=== PATIENT | female | born 1960 | race African-American/Black ===

== ENCOUNTER 2017-10-23 12:58 | Emergency (ER) | payer OTHER ==
[2017-10-23] MEDS ORDERED: IBUPROFEN 600 MG TAB PO STA (13:26)
[2017-10-23] MEDS ORDERED: SODIUM CHLORIDE 0.9% 500 ML IV STA (13:26)
[2017-10-23] MEDS ORDERED: ACETAMINOPHEN TAB 500 MG TAB PO STA (13:26)
--- NOTE | 2017-10-23 13:29 | ED ---
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 Patient comes in today because she was having some palpitations when she was at her rehab facility. Patient states she also has some congestion and she felt a little warm earlier today. Patient denies any chest pain patient denies difficulty breathing or shortness of breath. Patient denies a cough. Patient denies any sore throat or ear pain. Patient states congestion is in the center of her face. Patient denies any abdominal pain patient denies nausea vomiting or diarrhea. Patient denies any dysuria hematuria urinary frequency. - Related Data Home Medications Medication Instructions Recorded Confirmed Aspirin 81 mg PO DAILY 10/23/17 10/23/17 Atorvastatin Calcium [Lipitor] 40 mg PO HS 10/23/17 10/23/17 Cyclobenzaprine [Flexeril] 5 mg PO BID 10/23/17 10/23/17 Metoprolol Succinate (ER) [Toprol 50 mg PO DAILY 10/23/17 10/23/17 Xl] Mirtazapine [Remeron] 30 mg PO HS 10/23/17 10/23/17 diphenhydrAMINE HCL [Benadryl] 25 mg PO BID 10/23/17 10/23/17 Allergies Allergy/AdvReac Type Severity Reaction Status Date / Time Penicillins Allergy Rash/Hives Verified 10/23/17 13:17 Sulfa (Sulfonamide Allergy Rash/Hives Verified 10/23/17 13:17 Antibiotics) Review of Systems ROS Statement: Those systems with pertinent positive or pertinent negative responses have been documented in the HPI. ROS Other: All systems not noted in ROS Statement are negative. Past Medical History Past Medical History: Hypertension History of Any Multi-Drug Resistant Organisms: None Reported Past Surgical History: Hysterectomy Additional Past Surgical History / Comment(s): splenectomy Past Anesthesia/Blood Transfusion Reactions: No Reported Reaction Past Psychological History: Anxiety, Bipolar Smoking Status: Current every day smoker Past Alcohol Use History: None Reported Additional Past Alcohol Use History / Comment(s): pt states she smoke a half a pack a day. pt states she had prescription drug use in the past but has gone to rehab for it. Past Drug Use History: Prescription Drug Abuse General Exam - General Exam Comments Initial Comments: GENERAL: Patient is well-developed and well-nourished. Patient is nontoxic and well- hydrated and is in mild distress. ENT: Neck is soft and supple. No significant lymphadenopathy is noted. Oropharynx is clear. Moist mucous membranes. Neck has full range of motion without eliciting any pain. EYES: The sclera were anicteric and conjunctiva were pink and moist. Extraocular movements were intact and pupils were equal round and reactive to light. Eyelids were unremarkable. PULMONARY: Unlabored respirations. Good breath sounds bilaterally. No audible rales rhonchi or wheezing was noted. CARDIOVASCULAR: There is a regular rate and rhythm without any murmurs gallops or rubs. Patient is tachycardic at about 105 beats a minute ABDOMEN: Soft and nontender with normal bowel sounds. No palpable organomegaly was noted. There is no palpable pulsatile mass. SKIN: Skin is clear with no lesions or rashes and otherwise unremarkable. NEUROLOGIC: Patient is alert and oriented x3. Cranial nerves II through XII are grossly intact. Motor and sensory are also intact. Normal speech, volume and content. Symmetrical smile. MUSCULOSKELETAL: Normal extremities with adequate strength and full range of motion. No lower extremity swelling or edema. No calf tenderness. LYMPHATICS: No significant lymphadenopathy is noted PSYCHIATRIC: Normal psychiatric evaluation. Course Vital Signs 10/23/17 10/23/17 13:28 14:09 Temperature 98.5 F Pulse Rate 98 92 Respiratory 18 16 Rate Blood Pressure 137/89 139/75 O2 Sat by Pulse 98 97 Oximetry Medical Decision Making - Medical Decision Making EKG shows sinus tachycardia at 105 bpm WV interval 166 QRS is 82 QT interval 340 QTC is 449. Patient's EKG shows no ST segment elevation or depression or T wave abnormalities are noted. Chest x-ray shows no acute abnormality. Rectal the patient she had a white count and that if any symptoms worsened or if she had any new symptoms she was to come back to the emergency department. - Lab Data Result diagrams: 10/23/17 13:38 10/23/17 13:38 Lab Results 10/23/17 10/23/17 10/23/17 Range/Units 13:38 13:38 13:38 WBC 18.0 H (3.8-10.6) k/uL RBC 4.54 (3.80-5.40) m/uL Hgb 13.7 (11.4-16.0) gm/dL Hct 43.5 (34.0-46.0) % MCV 95.9 (80.0-100.0) fL MCH 30.1 (25.0-35.0) pg MCHC 31.4 (31.0-37.0) g/dL RDW 13.1 (11.5-15.5) % Plt Count 449 (150-450) k/uL Neutrophils % 85 % Lymphocytes % 10 % Monocytes % 3 % Eosinophils % 2 % Basophils % 0 % Neutrophils # 15.3 H (1.3-7.7) k/uL Lymphocytes # 1.8 (1.0-4.8) k/uL Monocytes # 0.5 (0-1.0) k/uL Eosinophils # 0.3 (0-0.7) k/uL Basophils # 0.1 (0-0.2) k/uL PT (9.0-12.0) sec INR (<1.2) APTT (22.0-30.0) sec Sodium 142 (137-145) mmol/L Potassium 3.8 (3.5-5.1) mmol/L Chloride 103 (98-107) mmol/L Carbon Dioxide 29 (22-30) mmol/L Anion Gap 10 mmol/L BUN 16 (7-17) mg/dL Creatinine 0.76 (0.52-1.04) mg/dL Est GFR (MDRD) Af Amer >60 (>60 ml/min/1.73 sqM) Est GFR (MDRD) Non-Af >60 (>60 ml/min/1.73 sqM) Glucose 130 H (74-99) mg/dL Calcium 10.0 (8.4-10.2) mg/dL Magnesium 1.9 (1.6-2.3) mg/dL Total Bilirubin 0.3 (0.2-1.3) mg/dL AST 16 (14-36) U/L ALT 24 (9-52) U/L Alkaline Phosphatase 70 (38-126) U/L Total Creatine Kinase 48 (30-135) U/L CK-MB (CK-2) 0.3 (0.0-2.4) ng/mL CK-MB (CK-2) Rel Index 0.6 Troponin I <0.012 (0.000-0.034) ng/mL Total Protein 6.6 (6.3-8.2) g/dL Albumin 3.7 (3.5-5.0) g/dL Urine Color Urine Appearance (Clear) Urine pH (5.0-8.0) Ur Specific [place] (1.001-1.035) Urine Protein (Negative) Urine Glucose (UA) (Negative) Urine Ketones (Negative) Urine Blood (Negative) Urine Nitrite (Negative) Urine Bilirubin (Negative) Urine Urobilinogen (<2.0) mg/dL Ur Leukocyte Esterase (Negative) 10/23/17 10/23/17 Range/Units 13:38 14:12 WBC (3.8-10.6) k/uL RBC (3.80-5.40) m/uL Hgb (11.4-16.0) gm/dL Hct (34.0-46.0) % MCV (80.0-100.0) fL MCH (25.0-35.0) pg MCHC (31.0-37.0) g/dL RDW (11.5-15.5) % Plt Count (150-450) k/uL Neutrophils % % Lymphocytes % % Monocytes % % Eosinophils % % Basophils % % Neutrophils # (1.3-7.7) k/uL Lymphocytes # (1.0-4.8) k/uL Monocytes # (0-1.0) k/uL Eosinophils # (0-0.7) k/uL Basophils # (0-0.2) k/uL PT 10.0 (9.0-12.0) sec INR 1.0 (<1.2) APTT 23.5 (22.0-30.0) sec Sodium (137-145) mmol/L Potassium (3.5-5.1) mmol/L Chloride (98-107) mmol/L Carbon Dioxide (22-30) mmol/L Anion Gap mmol/L BUN (7-17) mg/dL Creatinine (0.52-1.04) mg/dL Est GFR (MDRD) Af Amer (>60 ml/min/1.73 sqM) Est GFR (MDRD) Non-Af (>60 ml/min/1.73 sqM) Glucose (74-99) mg/dL Calcium (8.4-10.2) mg/dL Magnesium (1.6-2.3) mg/dL Total Bilirubin (0.2-1.3) mg/dL AST (14-36) U/L ALT (9-52) U/L Alkaline Phosphatase (38-126) U/L Total Creatine Kinase (30-135) U/L CK-MB (CK-2) (0.0-2.4) ng/mL CK-MB (CK-2) Rel Index Troponin I (0.000-0.034) ng/mL Total Protein (6.3-8.2) g/dL Albumin (3.5-5.0) g/dL Urine Color Yellow Urine Appearance Clear (Clear) Urine pH 6.5 (5.0-8.0) Ur Specific [place] 1.018 (1.001-1.035) Urine Protein Negative (Negative) Urine Glucose (UA) Negative (Negative) Urine Ketones Negative (Negative) Urine Blood Negative (Negative) Urine Nitrite Negative (Negative) Urine Bilirubin Negative (Negative) Urine Urobilinogen <2.0 (<2.0) mg/dL Ur Leukocyte Esterase Negative (Negative) Disposition Clinical Impression: Upper respiratory infection, Palpitations Disposition: HOME SELF-CARE Condition: Good Instructions: Upper Respiratory Infection (ED), Palpitations (ED) Referrals: Nonstaff,Physician [Primary Care Provider] - 1-2 days Time of Disposition: 15:01
[2017-10-23 13:32] VITALS: TEMP 98.5
[2017-10-23 13:48] LABS: Basophils # (A) 0.1 k/uL (0-0.2); Basophils % (A) 0 %; Eosinophils # (A) 0.3 k/uL (0-0.7); Eosinophils % (A) 2 %; HCT 43.5 % (34.0-46.0); HGB 13.7 gm/dL (11.4-16.0); Lymphocytes # (A) 1.8 k/uL (1.0-4.8); Lymphocytes % (A) 10 %; MCH 30.1 pg (25.0-35.0); MCHC 31.4 g/dL (31.0-37.0); MCV 95.9 fL (80.0-100.0); Mean Platelet Volume 7.2; Monocytes # (A) 0.5 k/uL (0-1.0); Monocytes % (A) 3 %; Neutrophils # (A) 15.3 k/uL (1.3-7.7); Neutrophils % (A) 85 %; Platelet Count 449 k/uL (150-450); RBC 4.54 m/uL (3.80-5.40); RDW 13.1 % (11.5-15.5)
[2017-10-23 13:56] LABS: ALT 24 U/L (9-52); AST 16 U/L (14-36); Albumin 3.7 g/dL (3.5-5.0); Alkaline Phosphatase 70 U/L (38-126); Anion Gap 10 mmol/L; Blood Urea Nitrogen 16 mg/dL (7-17); Carbon Dioxide 29 mmol/L (22-30); Chloride 103 mmol/L (98-107); Glucose 130 mg/dL (74-99); Magnesium 1.9 mg/dL (1.6-2.3); Potassium 3.8 mmol/L (3.5-5.1); Sodium 142 mmol/L (137-145); Total Bilirubin 0.3 mg/dL (0.2-1.3); Total Protein 6.6 g/dL (6.3-8.2)
--- NOTE | 2017-10-23 14:04 | XR ---
EXAMINATION TYPE: XR chest 2V DATE OF EXAM: 10/23/2017 COMPARISON: NONE HISTORY: Dysrhythmia TECHNIQUE: Frontal and lateral views of the chest are obtained. FINDINGS: There is no focal air space opacity, pleural effusion, or pneumothorax seen. The cardiac silhouette size is within normal limits. There are overlying cardiac leads. The osseous structures a re intact. IMPRESSION: No acute cardiopulmonary process.
[2017-10-23 14:09] LABS: Partial Thromboplastin Time 23.5 sec (22.0-30.0)
[2017-10-23 14:11] LABS: Creatine Kinase 48 U/L (30-135)
[2017-10-23 14:24] LABS: Creatine Kinase MB 0.3 ng/mL (0.0-2.4); Troponin I <0.012 ng/mL (0.000-0.034)
[2017-10-23 14:25] LABS: Appearance,Urine Clear (Clear); Bilirubin,Urine Negative (Negative); Blood,Urine Negative (Negative); Color,Urine Yellow; Glucose,Urine (UA) Negative (Negative); Ketones,Urine Negative (Negative); Leukocyte Esterase,Urine Negative (Negative); Nitrite,Urine Negative (Negative); PH, Urine 6.5 (5.0-8.0); Protein,Urine Negative (Negative); Specific Gravity,Urine 1.018 (1.001-1.035); Urobilinogen,Urine <2.0 mg/dL (<2.0)
[2017-10-23 15:44] VITALS: BP 136/68; PULSE 87; RESP 18
== END 2017-10-23 15:44 | disposition home or self-care (01) ==
LOC: EC 12:58
DX: J06.9 Acute upper respiratory infection, unspecified (principal); R00.2 Palpitations; R00.0 Tachycardia, unspecified; E78.5 Hyperlipidemia, unspecified; I10 Essential (primary) hypertension; F17.210 Nicotine dependence, cigarettes, uncomplicated; Z79.82 Long term (current) use of aspirin; Z79.899 Other long term (current) drug therapy; Z88.0 Allergy status to penicillin; Z88.2 Allergy status to sulfonamides
CPT/HCPCS: 36415; 71046; 80053; 81003; 82550; 82553; 83735; 84484; 85025; 85610; 85730; 93005; 99285

== ENCOUNTER 2017-12-25 19:05 | Observation (INO) | payer OTHER ==
--- NOTE | 2017-12-25 21:06 | XR ---
EXAMINATION: XR chest 2V DATE AND TIME: 12/25/2017 8:47 PM ORDERING PROVIDER: Forrest Laird CLINICAL INDICATION: COUGH headache and congestion TECHNIQUE: PA and lateral COMPARISON: To 218 DESCRIPTION: The lungs are clear. The pleural spaces are negative. The cardiac silhouette is not enlarged. The mediastinal and pleural silhouettes are unremarkable. The skeletal structures are intact without focal findings. The soft tissues are unremarkable. IMPRESSION: NO ACUTE PROCESS.
[2017-12-25] MEDS ORDERED: IBUPROFEN 600 MG TAB PO STA (21:08)
[2017-12-25] MEDS ORDERED: SODIUM CHLORIDE 0.9% 500 ML IV STA (21:08)
[2017-12-25] MEDS ORDERED: SODIUM CHLORIDE 0.9% 1,000 ML IV ONE (21:14)
[2017-12-25 22:03] LABS: Basophils % (A) 1 %; Eosinophils # (A) 0.5 k/uL (0-0.7); Eosinophils % (A) 7 %; HCT 43.7 % (34.0-46.0); HGB 13.8 gm/dL (11.4-16.0); Hypochromasia Slight; Lymphocytes # (A) 2.8 k/uL (1.0-4.8); Lymphocytes % (A) 41 %; MCH 30.4 pg (25.0-35.0); MCHC 31.6 g/dL (31.0-37.0); MCV 96.1 fL (80.0-100.0); Mean Platelet Volume 7.7; Monocytes # (A) 0.5 k/uL (0-1.0); Monocytes % (A) 7 %; Neutrophils # (A) 2.9 k/uL (1.3-7.7); Neutrophils % (A) 43 %; Platelet Count 401 k/uL (150-450); RBC 4.55 m/uL (3.80-5.40); RDW 13.1 % (11.5-15.5); WBC 6.8 k/uL (3.8-10.6)
[2017-12-25] MEDS: SODIUM CHLORIDE 0.9% 1,000 ML IV SCH (22:06)
[2017-12-25 22:08] LABS: Appearance,Urine Cloudy (Clear); Bacteria,Urine Rare /hpf; Bilirubin,Urine Negative (Negative); Blood,Urine Negative (Negative); Color,Urine Yellow; Glucose,Urine (UA) Negative (Negative); Hyaline Casts,Urine 3 /lpf (0-2); Ketones,Urine Negative (Negative); Leukocyte Esterase,Urine Small (Negative); Mucus,Urine Rare /hpf; Nitrite,Urine Negative (Negative); Protein,Urine Negative (Negative); RBC,Urine 6 /hpf (0-5); Specific Gravity,Urine 1.014 (1.001-1.035); Squamous Epithelial Cell,Urine 6 /hpf (0-4); Urobilinogen,Urine <2.0 mg/dL (<2.0); WBC,Urine 4 /hpf (0-5)
[2017-12-25 22:15] LABS: Anion Gap 11 mmol/L; Calcium 9.5 mg/dL (8.4-10.2); Carbon Dioxide 29 mmol/L (22-30); Chloride 103 mmol/L (98-107); Glucose 109 mg/dL (74-99); Sodium 143 mmol/L (137-145)
[2017-12-25 22:19] LABS: Blood Urea Nitrogen 9 mg/dL (7-17); Potassium 4.4 mmol/L (3.5-5.1)
--- NOTE | 2017-12-25 22:39 | ED ---
General Adult HPI - General Chief complaint: Upper Respiratory Infection Stated complaint: Headache/Sore Throat Time Seen by Provider: 12/25/17 20:50 Source: patient, family, RN notes reviewed Mode of arrival: ambulatory Limitations: no limitations - History of Present Illness Initial comments: Chief complaint history of present illness this is a 57-year-old female here for complaint of chills, sore throat and muscle aches and pains. No nausea vomiting or diarrhea. Otherwise she reports her appetite good. Patient denies fever - Related Data Home Medications Medication Instructions Recorded Confirmed Aspirin 81 mg PO DAILY 10/23/17 10/23/17 Atorvastatin Calcium [Lipitor] 40 mg PO HS 10/23/17 10/23/17 Cyclobenzaprine [Flexeril] 5 mg PO BID 10/23/17 10/23/17 Metoprolol Succinate (ER) [Toprol 50 mg PO DAILY 10/23/17 10/23/17 Xl] Mirtazapine [Remeron] 30 mg PO HS 10/23/17 10/23/17 diphenhydrAMINE HCL [Benadryl] 25 mg PO BID 10/23/17 10/23/17 Allergies Allergy/AdvReac Type Severity Reaction Status Date / Time Penicillins Allergy Rash/Hives Verified 12/25/17 19:19 Sulfa (Sulfonamide Allergy Rash/Hives Verified 12/25/17 19:19 Antibiotics) Review of Systems ROS Statement: Those systems with pertinent positive or pertinent negative responses have been documented in the HPI. Review of systems. Patient complains of chills some sore throat aches and pains fluid type symptoms. Ongoing for approximately 2 days. All systems were reviewed. Past medical problems significant for hypertension and hypercholesterolemia. Surgeries include splenectomy secondary to trauma associated with a perforated colon during colonoscopy per patient. The patient THE TOTAL HYSTERECTOMY. RATIONS FAMILY HISTORY SIGNIFICANT FOR MOTHER HAD BREAST CANCER BROTHER HAD CANCER OF UNKNOWN TYPE TO HER. SHE HAS ALLERGIES to penicillin and sulfa. She quit smoking 8 months ago denies alcohol use. ROS Other: All systems not noted in ROS Statement are negative. Past Medical History Past Medical History: Hypertension History of Any Multi-Drug Resistant Organisms: None Reported Past Surgical History: Hysterectomy Additional Past Surgical History / Comment(s): splenectomy Past Anesthesia/Blood Transfusion Reactions: No Reported Reaction Past Psychological History: Anxiety, Bipolar Smoking Status: Former smoker Past Alcohol Use History: None Reported Past Drug Use History: Prescription Drug Abuse General Exam - General Exam Comments Initial Comments: General: The patient is awake and alert, complains of flu-type symptoms. Muscle aches and pains. Took Tylenol at home before coming emergency room. Vital signs temperature 97.5 pulse 1:30 respiratory rate 18 pulse ox 96% room air blood pressure 126/72 patient had an IV started receiving 1/2 L of fluid. Eye: Pupils are equal, round and reactive to light, extra-ocular movements are intact ; there is normal conjunctiva bilaterally. No signs of icterus. Ears, nose, mouth and throat: There are moist mucous membranes and no oral lesions. Patient complains of sore throat. Neck: The neck is supple, there is no tenderness, no stiff neck, no meningismus. No anterior cervical lymphadenopathy. Cardiovascular: Tachycardic heart rate, 1:30.. No murmur, rub or gallop is appreciated. Respiratory: Lungs are clear to auscultation, respirations are non-labored, breath sounds are equal. No wheezes, stridor, rales, or rhonchi. Gastrointestinal: Soft, non-distended, non-tender abdomen without masses or organomegaly noted. There is no rebound or guarding present. No CVA tenderness. Bowel sounds are unremarkable. Back: There is no tenderness to palpation in the midline. There is no obvious deformity. No rashes noted. Musculoskeletal: Complains musculoskeletal discomfort. Neurological: No neuro deficits Skin: Skin is warm and dry and no rashes or lesions are noted. Psychiatric: Cooperative, Limitations: no limitations Course Vital Signs 12/25/17 12/25/17 12/25/17 19:15 22:06 23:20 Temperature 97.5 F L Pulse Rate 130 H 115 H 103 H Respiratory 18 18 18 Rate Blood Pressure 126/72 124/73 153/69 O2 Sat by Pulse 96 97 95 Oximetry Medical Decision Making - Medical Decision Making Medical decision making; patient presents emergency room with approximately 24 hours or flu-type symptoms. Labs show influenza AB negative.. Urine shows 6 red to 4 whites. White count 6.8 hemoglobin 13.8 hematocrit of 43. D-dimer normal at 0.47. Potassium 4.4 with a BUN of 9 creatinine 0.7 GFR greater than 90 and a glucose of 109. Chest x-ray was done and reviewed by radiologist his final impression is no acute process as read by Dr. Master Crooks. She did have chills and some back pain. Some evidence of minor tract infection. Possibility of pyelonephritis was discussed with patient. The patient was started on Levaquin in emergency room. Admitted for further evaluation. - Lab Data Result diagrams: 12/25/17 21:45 12/25/17 21:45 Lab Results 12/25/17 12/25/17 12/25/17 Range/Units 19:21 21:45 21:45 WBC 6.8 (3.8-10.6) k/uL RBC 4.55 (3.80-5.40) m/uL Hgb 13.8 (11.4-16.0) gm/dL Hct 43.7 (34.0-46.0) % MCV 96.1 (80.0-100.0) fL MCH 30.4 (25.0-35.0) pg MCHC 31.6 (31.0-37.0) g/dL RDW 13.1 (11.5-15.5) % Plt Count 401 (150-450) k/uL Neutrophils % 43 % Lymphocytes % 41 % Monocytes % 7 % Eosinophils % 7 % Basophils % 1 % Neutrophils # 2.9 (1.3-7.7) k/uL Lymphocytes # 2.8 (1.0-4.8) k/uL Monocytes # 0.5 (0-1.0) k/uL Eosinophils # 0.5 (0-0.7) k/uL Basophils # 0.0 (0-0.2) k/uL Hypochromasia Slight D-Dimer (<0.60) mg/L FEU Sodium 143 (137-145) mmol/L Potassium 4.4 (3.5-5.1) mmol/L Chloride 103 (98-107) mmol/L Carbon Dioxide 29 (22-30) mmol/L Anion Gap 11 mmol/L BUN 9 (7-17) mg/dL Creatinine 0.70 (0.52-1.04) mg/dL Est GFR (CKD-EPI)AfAm >90 (>60 ml/min/1.73 sqM) Est GFR (CKD-EPI)NonAf >90 (>60 ml/min/1.73 sqM) Glucose 109 H (74-99) mg/dL Plasma Lactic Acid Wes (0.7-2.0) mmol/L Calcium 9.5 (8.4-10.2) mg/dL Urine Color Urine Appearance (Clear) Urine pH (5.0-8.0) Ur Specific [place] (1.001-1.035) Urine Protein (Negative) Urine Glucose (UA) (Negative) Urine Ketones (Negative) Urine Blood (Negative) Urine Nitrite (Negative) Urine Bilirubin (Negative) Urine Urobilinogen (<2.0) mg/dL Ur Leukocyte Esterase (Negative) Urine RBC (0-5) /hpf Urine WBC (0-5) /hpf Ur Squamous Epith Cells (0-4) /hpf Urine Bacteria (None) /hpf Hyaline Casts (0-2) /lpf Urine Mucus (None) /hpf Influenza Type A RNA Not Detected (Not Detectd) Influenza Type B (PCR) Not Detected (Not Detectd) 12/25/17 12/25/17 12/25/17 Range/Units 21:45 21:45 21:45 WBC (3.8-10.6) k/uL RBC (3.80-5.40) m/uL Hgb (11.4-16.0) gm/dL Hct (34.0-46.0) % MCV (80.0-100.0) fL MCH (25.0-35.0) pg MCHC (31.0-37.0) g/dL RDW (11.5-15.5) % Plt Count (150-450) k/uL Neutrophils % % Lymphocytes % % Monocytes % % Eosinophils % % Basophils % % Neutrophils # (1.3-7.7) k/uL Lymphocytes # (1.0-4.8) k/uL Monocytes # (0-1.0) k/uL Eosinophils # (0-0.7) k/uL Basophils # (0-0.2) k/uL Hypochromasia D-Dimer 0.47 (<0.60) mg/L FEU Sodium (137-145) mmol/L Potassium (3.5-5.1) mmol/L Chloride (98-107) mmol/L Carbon Dioxide (22-30) mmol/L Anion Gap mmol/L BUN (7-17) mg/dL Creatinine (0.52-1.04) mg/dL Est GFR (CKD-EPI)AfAm (>60 ml/min/1.73 sqM) Est GFR (CKD-EPI)NonAf (>60 ml/min/1.73 sqM) Glucose (74-99) mg/dL Plasma Lactic Acid Wes 1.3 (0.7-2.0) mmol/L Calcium (8.4-10.2) mg/dL Urine Color Yellow Urine Appearance Cloudy H (Clear) Urine pH 6.0 (5.0-8.0) Ur Specific [place] 1.014 (1.001-1.035) Urine Protein Negative (Negative) Urine Glucose (UA) Negative (Negative) Urine Ketones Negative (Negative) Urine Blood Negative (Negative) Urine Nitrite Negative (Negative) Urine Bilirubin Negative (Negative) Urine Urobilinogen <2.0 (<2.0) mg/dL Ur Leukocyte Esterase Small H (Negative) Urine RBC 6 H (0-5) /hpf Urine WBC 4 (0-5) /hpf Ur Squamous Epith Cells 6 H (0-4) /hpf Urine Bacteria Rare H (None) /hpf Hyaline Casts 3 H (0-2) /lpf Urine Mucus Rare H (None) /hpf Influenza Type A RNA (Not Detectd) Influenza Type B (PCR) (Not Detectd) Disposition Clinical Impression: Pyelonephritis Disposition: ADMITTED IP TO THIS [facility] Condition: Fair Referrals: Nonstaff,Physician [REFERRING] - 1-2 days
[2017-12-26] MEDS ORDERED: LEVOFLOXACIN 500MG-D5W PMX 500 MG in DEXTROSE/WATER 1 100ML.BAG IVPB STA
[2017-12-26] MEDS ORDERED: NALOXONE 0.4 MG/ML 1 ML VIAL IV PRN (00:06)
[2017-12-26] MEDS ORDERED: ACETAMINOPHEN TAB 325 MG TAB PO PRN (00:06)
[2017-12-26 02:06] VITALS: BMI 29.0
[2017-12-26] MEDS: SODIUM CHLORIDE 0.9% 1,000 ML IV SCH ×3 (02:33→11:16)
[2017-12-26 08:30] VITALS: BP 132/82; PULSE 99; RESP 18; TEMP 97.7
[2017-12-26] MEDS ORDERED: FAMOTIDINE 20 MG TAB PO SCH (09:00)
[2017-12-26] MEDS ORDERED: ASPIRIN 81 MG PO SCH (09:00)
[2017-12-26] MEDS ORDERED: METOPROLOL SUCCINATE (ER) 50 MG TAB.ER.24H PO SCH (09:00)
--- NOTE | 2017-12-26 14:56 | P.DS ---
Providers Date of admission: 12/26/17 00:07 Attending physician: Perez John Primary care physician: Stated None Hospital Course: Please refer to HPI Patient Condition at Discharge: Fair Plan - Discharge Summary Discharge Rx Participant: No New Discharge Prescriptions: New Doxycycline Monohydrate [Monodox] 100 mg PO BID 5 Days #10 cap Ciprofloxacin Ophth Soln [Cipro 0.3% Ophth Soln] 2 drops BOTH EYES Q4HR #1 bottle No Action diphenhydrAMINE HCL [Benadryl] 25 mg PO BID Metoprolol Succinate (ER) [Toprol Xl] 50 mg PO DAILY Atorvastatin Calcium [Lipitor] 40 mg PO HS Aspirin 81 mg PO DAILY Discharge Medication List Aspirin 81 mg PO DAILY 10/23/17 [History] Atorvastatin Calcium [Lipitor] 40 mg PO HS 10/23/17 [History] Metoprolol Succinate (ER) [Toprol Xl] 50 mg PO DAILY 10/23/17 [History] diphenhydrAMINE HCL [Benadryl] 25 mg PO BID 10/23/17 [History] Ciprofloxacin Ophth Soln [Cipro 0.3% Ophth Soln] 2 drops BOTH EYES Q4HR #1 bottle 12/26/17 [Rx] Doxycycline Monohydrate [Monodox] 100 mg PO BID 5 Days #10 cap 12/26/17 [Rx] Follow up Appointment(s)/Referral(s): Luís Lindo MD [STAFF PHYSICIAN] - 1 Week Nomi Isidro DPM [STAFF PHYSICIAN] - 1 Week Nonstaff,Physician [REFERRING] - 1-2 days Discharge Disposition: HOME SELF-CARE
--- NOTE | 2017-12-26 14:56 | P.HPIM ---
History of Present Illness Patient is a pleasant 57-year-old female moved from [place] area recently came in with complaints of generalized body aches and subjective fevers at home no fever inside hospitalization was admitted with concerns of urinary tract infection although urease a contaminated urine sample. Patient does not have any symptoms of suprapubic pain tenderness dysuria or increased urinary frequency. Patient was comparing of sore throat and cough with the white to yellowish sputum production. Influenza testing was negative chest x-ray did not show any pneumonia patient may have bacterial bronchitis which may be secondary patient primarily has viral upper respiratory illness along with the viral conjunctivitis, bilateral predominantly in the right eye. Patient will be discharged today patient will be referred to Dr. Lindo as primary care physician patient has a callus on the plantar surface of the right foot wanted to be addressed and asking referral to foot surgeon patient will be referred to foot surgeon as well. Patient was asked to take Tylenol as as needed basis for her body aches oral hydration. Review of Systems REVIEW OF SYSTEMS: CONSTITUTIONAL: As described in HPI HEENT: No recent visual problems or hearing problems. Denied any sore throat. CARDIOVASCULAR: No chest pain, orthopnea, PND, no palpitations, no syncope. PULMONARY: No shortness of breath, no cough, no hemoptysis. GASTROINTESTINAL: No diarrhea, no nausea, no vomiting, no abdominal pain. Normoactive bowel sounds. NEUROLOGICAL: No headaches, no weakness, no numbness. HEMATOLOGICAL: Denies any bleeding or petechiae. GENITOURINARY: Denies any burning micturition, frequency, or urgency. MUSCULOSKELETAL/RHEUMATOLOGICAL: Denies any joint pain, swelling, or any muscle pain. ENDOCRINE: Denies any polyuria or polydipsia. The rest of the 14-point review of systems is negative. Past Medical History Past Medical History: Hypertension History of Any Multi-Drug Resistant Organisms: None Reported Past Surgical History: Hysterectomy Additional Past Surgical History / Comment(s): splenectomy Past Anesthesia/Blood Transfusion Reactions: No Reported Reaction Past Psychological History: Anxiety, Bipolar Smoking Status: Former smoker Past Alcohol Use History: None Reported Additional Past Alcohol Use History / Comment(s): pt states she smoke a half a pack a day. pt states she had prescription drug use in the past but has gone to rehab for it. Past Drug Use History: Prescription Drug Abuse Medications and Allergies Home Medications Medication Instructions Recorded Confirmed Type Aspirin 81 mg PO DAILY 10/23/17 12/26/17 History Atorvastatin Calcium [Lipitor] 40 mg PO HS 10/23/17 12/26/17 History Metoprolol Succinate (ER) [Toprol 50 mg PO DAILY 10/23/17 12/26/17 History Xl] diphenhydrAMINE HCL [Benadryl] 25 mg PO BID 10/23/17 12/26/17 History Doxycycline Monohydrate [Monodox] 100 mg PO BID 5 Days #10 cap 12/26/17 Rx Allergies Allergy/AdvReac Type Severity Reaction Status Date / Time Penicillins Allergy Rash/Hives Verified 12/26/17 10:51 Sulfa (Sulfonamide Allergy Rash/Hives Verified 12/26/17 10:51 Antibiotics) Physical Exam Vitals: Vital Signs Temp Pulse Pulse Resp BP BP Pulse Ox 12/26/17 07:00 97.7 F 99 18 132/82 97 12/26/17 02:30 97.5 F L 104 H 16 132/72 98 12/26/17 01:25 97.9 F 98 18 123/78 98 12/26/17 00:21 98.0 F 102 H 18 114/62 98 12/25/17 23:20 103 H 18 153/69 95 12/25/17 22:06 115 H 18 124/73 97 12/25/17 19:15 97.5 F L 130 H 18 126/72 96 Intake and Output 12/25/17 12/26/17 12/26/17 22:59 06:59 14:59 Intake Total 990 238 Balance 990 238 Intake: Intake, IV Titration 400 Amount Sodium Chloride 0.9% 1, 400 000 ml @ 80 mls/hr IV . [id number] [facility] Rx#:[id number] Oral 590 238 Other: Voiding Method Toilet # Voids 1 Weight 84.141 kg 84.141 kg PHYSICAL EXAMINATION: GENERAL: The patient is alert and oriented x3, not in any acute distress. Well developed, well nourished. HEENT: Pupils are round and equally reacting to light. EOMI. No scleral icterus. No conjunctival pallor. Normocephalic, atraumatic. . No thyromegaly. There is some mild posterior pharyngeal erythema without any pus or tonsillar exudate CARDIOVASCULAR: S1 and S2 present. No murmurs, rubs, or gallops. PULMONARY: Chest is clear to auscultation, no wheezing or crackles. ABDOMEN: Soft, nontender, nondistended, normoactive bowel sounds. No palpable organomegaly. MUSCULOSKELETAL: No joint swelling or deformity. EXTREMITIES: No cyanosis, clubbing, or pedal edema. NEUROLOGICAL: Gross neurological examination did not reveal any focal deficits. SKIN: No rashes. Results CBC & Chem 7: 12/25/17 21:45 12/25/17 21:45 Labs: Abnormal Lab Results - Last 24 Hours (Table) 12/25/17 12/25/17 Range/Units 21:45 21:45 Glucose 109 H (74-99) mg/dL Urine Appearance Cloudy H (Clear) Ur Leukocyte Esterase Small H (Negative) Urine RBC 6 H (0-5) /hpf Ur Squamous Epith Cells 6 H (0-4) /hpf Urine Bacteria Rare H (None) /hpf Hyaline Casts 3 H (0-2) /lpf Urine Mucus Rare H (None) /hpf Microbiology - Last 24 Hours (Table) 12/25/17 21:45 Urine Culture - Preliminary Urine,Voided Thrombosis Risk Factor Assmnt - Choose All That Apply Any of the Below Risk Factors Present?: Yes Each Factor Represents 1 point: Medical pt on bed rest Other Risk Factors: No Thrombosis Risk Factor Assessment Total Risk Factor Score: 1 Thrombosis Risk Factor Assessment Level: Low Risk Assessment and Plan Plan: -Vital upper respiratory illness with probable secondary bacterial bronchitis. -Vital conjunctivitis -Hypertension -Hyperlipidemia -Chronic low back pain Further management as mentioned in the HPI itself patient will be discharged today with the above-mentioned follow-ups
[2017-12-26] MEDS ORDERED: MIRTAZAPINE 15 MG TAB PO SCH (21:00)
[2017-12-26] MEDS ORDERED: LEVOFLOXACIN 500MG-D5W PMX 500 MG in DEXTROSE/WATER 1 100ML.BAG IVPB SCH (23:00)
== END 2017-12-26 15:38 | disposition home or self-care (01) ==
LOC: EC 19:05 → 3SUR 12-26 00:07
PROVIDERS: ADMIT Internal Medicine; ATTEND Internal Medicine
DX: J06.9 Acute upper respiratory infection, unspecified (principal); B30.9 Viral conjunctivitis, unspecified; I10 Essential (primary) hypertension; E78.00 Pure hypercholesterolemia, unspecified; E78.5 Hyperlipidemia, unspecified; Z90.81 Acquired absence of spleen; Z87.891 Personal history of nicotine dependence; F41.9 Anxiety disorder, unspecified; F31.9 Bipolar disorder, unspecified; M54.5 Low back pain; G89.29 Other chronic pain; N12 Tubulo-interstitial nephritis, not specified as acute or chronic; Z79.82 Long term (current) use of aspirin; Z79.899 Other long term (current) drug therapy; Z88.0 Allergy status to penicillin; Z88.2 Allergy status to sulfonamides; Z80.9 Family history of malignant neoplasm, unspecified; Z80.3 Family history of malignant neoplasm of breast
CPT/HCPCS: 36415; 71046; 80048; 81001; 83605; 85025; 85379; 87077; 87086; 87186; 87502; 96361; 96365; 99284

== ENCOUNTER 2018-01-17 15:36 | Inpatient (IN) | payer OTHER ==
--- NOTE | 2018-01-17 16:19 | ED ---
Chest Pain HPI - General Chief Complaint: Chest Pain Stated Complaint: Chest pressure Time Seen by Provider: 01/17/18 15:40 Source: patient Mode of arrival: EMS Limitations: no limitations - History of Present Illness Initial Comments: This patient is a 57-year-old woman who presents to be evaluated for feeling of heaviness to the substernal area of her chest, which is been going on for proximally 24 hours. She states that it started yesterday in the afternoon while she was just sitting. Since that time it has continued and there has been a little bit of shortness of breath. She has had a cough which is been going on starting in number days before the chest tightness. She does have occasional yellowish sputum. Patient states that when the symptoms continued today she was advised by friend to be checked in the emergency department. She was given nitroglycerin by EMS which seemed to partially relieve the chest heaviness. She denies previous hernia disease but states that there is a loud of congestive heart failure that runs in the family. MD Complaint: chest pain Onset/Timin -: hour(s) Onset: during rest Pain Location: substernal Pain Radiation: none Severity: moderate Quality: heaviness Consistency: constant Improves With: nitroglycerin Worsens With: nothing Anginal Symptoms: dyspnea Treatments Prior to Arrival: nitroglycerin - Related Data On Oral Contraceptives: No Home Medications Medication Instructions Recorded Confirmed Atorvastatin Calcium [Lipitor] 40 mg PO HS 10/23/17 01/07/18 Metoprolol Succinate (ER) [Toprol 50 mg PO DAILY 10/23/17 01/07/18 Xl] diphenhydrAMINE HCL [Benadryl] 25 mg PO BID 10/23/17 01/07/18 Albuterol Inhaler [Ventolin Hfa 1 - 2 puff INHALATION RT-Q6H PRN 01/07/18 Inhaler] Ascorbic Acid [Vitamin C] 500 mg PO DAILY 01/07/18 01/07/18 Calcium/Magnesium/Zinc 1 tab PO DAILY 01/07/18 01/07/18 [Ccndllk-Enfzyirdh-Zgnx Tablet] Cyanocobalamin (Vitamin B-12) 1,000 mcg PO DAILY 01/07/18 01/07/18 [Vitamin B-12] Cyclobenzaprine [Flexeril] 5 mg PO TID PRN 01/07/18 01/07/18 L.acidoph,Paracasei, B.lactis 1 cap PO DAILY 01/07/18 01/07/18 [Probiotic] Multivit with Calcium,Iron,Min 1 tab PO DAILY 01/07/18 01/07/18 [Women's Multivitamin] [place]-3 Fatty Acids/Fish Oil [Fish 1 cap PO DAILY 01/07/18 01/07/18 Oil 1,000 mg Softgel] Ranitidine HCl [Zantac] 150 mg PO BID 01/07/18 01/07/18 Previous Rx's Medication Instructions Recorded predniSONE 50 mg PO DAILY #5 tab 01/07/18 Allergies Allergy/AdvReac Type Severity Reaction Status Date / Time Penicillins Allergy Rash/Hives Verified 01/07/18 10:04 Sulfa (Sulfonamide Allergy Rash/Hives Verified 01/07/18 10:04 Antibiotics) Review of Systems ROS Statement: Those systems with pertinent positive or pertinent negative responses have been documented in the HPI. ROS Other: All systems not noted in ROS Statement are negative. Constitutional: Denies: fever, chills Respiratory: Reports: cough, dyspnea. Denies: hemoptysis Cardiovascular: Reports: chest pain. Denies: palpitations, orthopnea, edema, syncope Gastrointestinal: Denies: abdominal pain, nausea, vomiting, diarrhea Genitourinary: Denies: dysuria, hematuria Musculoskeletal: Denies: back pain Skin: Denies: rash Neurological: Denies: headache, weakness, numbness EKG Findings - EKG Results: EKG: interpreted by ERMD, sinus rhythm (Approximate 80 bpm), normal axis, normal ST/T - Blocks, Kite, Hypertrophy, ST Abn: Chamber hypertrophy or enlargement: only voltage criteria for left ventricular hypertrophy Past Medical History Past Medical History: Hypertension History of Any Multi-Drug Resistant Organisms: None Reported Past Surgical History: Hysterectomy Additional Past Surgical History / Comment(s): splenectomy Past Anesthesia/Blood Transfusion Reactions: No Reported Reaction Past Psychological History: Anxiety, Bipolar Smoking Status: Former smoker Past Alcohol Use History: None Reported Past Drug Use History: Prescription Drug Abuse General Exam Limitations: no limitations General appearance: alert, in no apparent distress Head exam: Present: atraumatic, normocephalic, normal inspection Eye exam: Present: normal appearance. Absent: scleral icterus, conjunctival injection ENT exam: Present: normal oropharynx Neck exam: Present: normal inspection, full ROM Respiratory exam: Present: normal lung sounds bilaterally. Absent: respiratory distress, wheezes, rales, rhonchi, stridor, chest wall tenderness Cardiovascular Exam: Present: regular rate, normal rhythm, normal heart sounds. Absent: bradycardia, tachycardia, systolic murmur, diastolic murmur, rubs, gallop GI/Abdominal exam: Present: soft. Absent: distended, tenderness, guarding, rebound, mass, pulsatile mass, hernia Extremities exam: Present: normal inspection, normal capillary refill. Absent: pedal edema, calf tenderness Back exam: Present: normal inspection. Absent: CVA tenderness (R), CVA tenderness (L) Neurological exam: Present: alert Skin exam: Present: warm, dry, intact, normal color. Absent: rash Course Vital Signs 01/17/18 01/17/18 01/17/18 15:42 16:21 17:18 Temperature 97.9 F Pulse Rate 80 75 Pulse Rate [ 79 Tacker Off ] Respiratory 18 18 Rate Blood Pressure 140/79 153/86 O2 Sat by Pulse 97 97 Oximetry Disposition Clinical Impression: Chest pain Disposition: ADMITTED IP TO THIS HOSP Condition: Good Is patient prescribed a controlled substance at d/c from ED?: No Referrals: None,Stated [Primary Care Provider] - 1-2 days
[2018-01-17 16:30] LABS: Basophils % (A) 0 %; Eosinophils # (A) 0.3 k/uL (0-0.7); Eosinophils % (A) 4 %; HCT 41.3 % (34.0-46.0); HGB 13.1 gm/dL (11.4-16.0); Lymphocytes # (A) 3.4 k/uL (1.0-4.8); Lymphocytes % (A) 45 %; MCH 30.5 pg (25.0-35.0); MCHC 31.8 g/dL (31.0-37.0); Mean Platelet Volume 7.4; Monocytes # (A) 0.4 k/uL (0-1.0); Monocytes % (A) 5 %; Neutrophils # (A) 3.3 k/uL (1.3-7.7); Neutrophils % (A) 43 %; Platelet Count 418 k/uL (150-450); RDW 13.2 % (11.5-15.5); WBC 7.6 k/uL (3.8-10.6)
[2018-01-17 16:35] LABS: Albumin 3.5 g/dL (3.5-5.0); Calcium 9.2 mg/dL (8.4-10.2); Magnesium 2.3 mg/dL (1.6-2.3); Potassium 4.2 mmol/L (3.5-5.1); Total Bilirubin 0.2 mg/dL (0.2-1.3); Total Protein 6.2 g/dL (6.3-8.2)
--- NOTE | 2018-01-17 16:35 | XR ---
EXAMINATION TYPE: XR chest 1V portable DATE OF EXAM: 01/17/2018 COMPARISON: December 25, 2017 HISTORY: Chest pain TECHNIQUE: Single frontal view of the chest is obtained. FINDINGS: There is an opacity in the periphery of the left lower chest which was not present on the prior examination. This could be due to portable technique. And underlying atelectasis or pneumonia i s difficult to fully exclude. No pneumothorax is seen in the cardiac silhouette is unchanged. IMPRESSION: Increased opacity at the left lower chest could be atelectasis pneumonia or overlying so ft tissues. If there remains clinical concern for pathology in the left lower chest 2 standard views in the department are recommended if the patient is stable.
[2018-01-17 16:39] LABS: D-Dimer 0.26 mg/L FEU (<0.60); Partial Thromboplastin Time 24.7 sec (22.0-30.0); Prothrombin Time 9.9 sec (9.0-12.0)
--- NOTE | 2018-01-17 17:15 | XR ---
EXAMINATION TYPE: XR chest 2V DATE OF EXAM: 01/17/2018 COMPARISON: January 17, 2018 HISTORY: Shortness of breath TECHNIQUE: Frontal and lateral views of the chest are obtained. FINDINGS: There is no focal air space opacity, pleural effusion, or pneumothorax seen. The cardiac silhouette size is within normal limits. The osseous structures are intact. Previously described op acification is resolved. IMPRESSION: No acute cardiopulmonary process.
[2018-01-17] MEDS ORDERED: NITROGLYCERIN SL TABS 0.4 MG TAB SUBLINGUAL PRN (17:21)
[2018-01-17] MEDS ORDERED: ALBUTEROL NEBULIZED 2.5 MG/3 ML INHALATION PRN (17:23)
[2018-01-17] MEDS ORDERED: CYCLOBENZAPRINE 5 MG TAB PO PRN (17:23)
[2018-01-17] MEDS: ACETAMINOPHEN TAB 325 MG TAB PO PRN (19:46)
[2018-01-17 21:59] LABS: Creatine Kinase 37 U/L (30-135)
[2018-01-17 22:07] VITALS: BMI 28.7
[2018-01-17] MEDS: FAMOTIDINE 20 MG TAB PO SCH (22:08)
[2018-01-17] MEDS: diphenhydrAMINE 25 MG CAP PO SCH (22:08)
[2018-01-17] MEDS: ATORVASTATIN 40 MG TAB PO SCH (22:08)
[2018-01-17 22:11] LABS: Creatine Kinase MB 0.2 ng/mL (0.0-2.4); Troponin I <0.012 ng/mL (0.000-0.034)
[2018-01-18 04:23] LABS: Cholesterol 101 mg/dL (<200); HDL Cholesterol 60 mg/dL (40-60); LDL Cholesterol,Calculated 30 mg/dL (0-99); Triglycerides 57 mg/dL (<150)
[2018-01-18 04:35] LABS: Creatine Kinase 35 U/L (30-135)
[2018-01-18 04:48] LABS: Creatine Kinase MB 0.2 ng/mL (0.0-2.4); Troponin I <0.012 ng/mL (0.000-0.034)
--- NOTE | 2018-01-18 07:50 | HP ---
HISTORY AND PHYSICAL CHIEF COMPLAINT: 57-year-old woman with substernal chest pain, heaviness in her chest going on for the last 24 hours. She when she is sitting down. She has short of breath. She had a cough. She came to the emergency room. She had a negative D-dimer. She has a history heart failure, it runs in the family. Moderate severity. Heaviness in quality. Constant consistency. improves with nitroglycerine, worsens with nothing. HOME MEDICATIONS: Include Lipitor 40 daily, metoprolol XR 50 mg daily, Benadryl 25 b.i.d., Ventolin HFA 2 puffs q.4h p.r.n., Flexeril 5 mg t.i.d., multivitamin, omega-3 fatty acids. Zantac 150 b.i.d. ALLERGIES: PENICILLIN, SULFAS. REVIEW OF SYSTEMS: Fourteen point review of systems negative except for mentioned in HPI. EKG shows sinus rhythm. PAST MEDICAL HISTORY: Hypertension as mentioned above, dyslipidemia. PAST SURGICAL HISTORY: Hysterectomy, splenectomy, anxiety, bipolar, former smoker. PHYSICAL EXAM: Vital signs stable. Afebrile. HEAD: Normocephalic, atraumatic. Ophthalmologic: Pupils equal, round, react to light and accommodation. NECK: Supple. Cardiovascular S1, S2. GI soft. Hematology negative Homans. Temperature 97.9, pulse 75 to 80, respiratory rate 16 to 18 blood pressure is 140s to 150s over 70s to 80s. IMPRESSION: 1. Atypical chest pain, rule out myocardial infarction. 2. Hypertension. 3. Dyslipidemia. Cardiology consult. Rule out myocardial infarction. She has a negative D-dimer and normal chest x-ray. She has negative troponins x3. She will possibly be able to be discharged home to follow up as outpatient. MMODL / IJN: [id number] /
[2018-01-18] MEDS: predniSONE 50 MG TAB PO SCH (08:25)
[2018-01-18] MEDS: FAMOTIDINE 20 MG TAB PO SCH ×2 (08:26→21:36)
[2018-01-18] MEDS: diphenhydrAMINE 25 MG CAP PO SCH ×2 (08:30→21:36)
[2018-01-18] MEDS ORDERED: NON-FORMULARY DRUG (Omega-3 Fatty Acids/Fish Oil [Fish Oil 1,000 Mg Softgel] 1 CAP) PO SCH (09:00)
[2018-01-18] MEDS ORDERED: ASPIRIN 325 MG TAB PO SCH (09:00)
--- NOTE | 2018-01-18 10:17 | P.CRDCN ---
History of Present Illness Consult date: 01/18/18 History of present illness: Mrs. Kennedy is a pleasant 57-year-old female past medical history significant for COPD, dyslipidemia, COPD and former tobacco use. She quite smoking months ago. She denies personal history of heart disease but in her family they have heart failure and heart disease. We have been asked to see her in consultation for chest pain. She states over the weekend she has been experiencing intermittent symptoms of chest pain. It felt like a pressure heavy sensation in the mid-sternal region with associated shortness of breath, dizziness, palpitations, nausea and diaphoresis. The symptoms seem to come at rest with no specific aggravating or alleviating factors. She states she has had these symptoms off and on for the past few months. Each episode is very brief lasting only a few minutes at a time. EKG reveals sinus mechanism with LVH, no acute ST or T-wave abnormalities. Telemetry tracings have been unremarkable. Chest xray on admission showed increased opacity to the left lower lobe possibly atelectasis, pneumonia or soft tissue overlay. Repeat 2-view is negative for an acute cardiopulmonary process or heart failure. Laboratory data reviewed, BNP 0.26, potassium 4.2, magnesium 2.3, cardiac enzymes negative 3, LDL 30. Current cardiac medications include aspirin 81 mg daily, atorvastatin 40 mg daily and metoprolol succinate 50 mg daily. She also takes albuterol and vitamin D. Review of Systems At the time my exam: CONSTITUTIONAL: Denies fever. Denies chills. EYES: Denies blurred vision. Denies vision changes. Denies eye pain. EARS, NOSE, MOUTH & THROAT: Denies headache. Denies sore throat. Denies ear pain. CARDIOVASCULAR: Denies chest pain. Denies shortness of breath. Denies orthopnea. Denies PND. Denies palpitations. RESPIRATORY: Denies cough. GASTROINTESTINAL: Denies abdominal pain. Denies diarrhea. Denies constipation. Denies nausea. Denies vomiting. MUSCULOSKELETAL: Denies myalgias. INTEGUMENTARY: Denies pruitis. Denies rash. NEUROLOGIC: Denies numbness. Denies tingling. Denies weakness. PSYCHIATRIC: Denies anxiety. Denies depression. ENDOCRINE: Denies fatigue. Denies weight change. Denies polydipsia. Denies polyurina. GENITOURINARY: Denies burning, hematuria or urgency with micturation. HEMATOLOGIC: Denies history of anemia. Denies bleeding. Past Medical History Past Medical History: COPD, Deep Vein Thrombosis (DVT), Hyperlipidemia, Hypertension Additional Past Medical History / Comment(s): back pain due to injury History of Any Multi-Drug Resistant Organisms: None Reported Past Surgical History: Hysterectomy Additional Past Surgical History / Comment(s): splenectomy Past Anesthesia/Blood Transfusion Reactions: No Reported Reaction Past Psychological History: Anxiety, Bipolar Smoking Status: Former smoker Past Alcohol Use History: None Reported Additional Past Alcohol Use History / Comment(s): pt states she smoke a half a pack a day. pt states she had prescription drug use in the past but has gone to rehab for it. Past Drug Use History: Prescription Drug Abuse Additional Drug Use History / Comment(s): past problems with opiate addiction in 2017 - pt went to rehab - Past Family History Father Family Medical History: Congestive Heart Failure (CHF) Medications and Allergies Home Medications Medication Instructions Recorded Confirmed Type Atorvastatin Calcium [Lipitor] 40 mg PO HS 10/23/17 01/17/18 History Metoprolol Succinate (ER) [Toprol 50 mg PO DAILY 10/23/17 01/17/18 History Xl] diphenhydrAMINE HCL [Benadryl] 50 mg PO Q4-6H PRN 10/23/17 01/17/18 History Albuterol Inhaler [Ventolin Hfa 1 - 2 puff INHALATION RT-Q6H PRN 01/17/18 History Inhaler] Aspirin 81 mg PO DAILY 01/17/18 01/17/18 History Cholecalciferol [Vitamin D3] 1,000 unit PO DAILY 01/17/18 01/17/18 History Allergies Allergy/AdvReac Type Severity Reaction Status Date / Time Penicillins Allergy Rash/Hives Verified 01/17/18 17:56 Sulfa (Sulfonamide Allergy Rash/Hives Verified 01/17/18 17:56 Antibiotics) Physical Exam Vitals: Vital Signs Temp Pulse Pulse Pulse Resp BP BP 01/18/18 07:50 97.4 F L 85 18 125/80 01/18/18 04:00 97.9 F 72 15 150/78 01/18/18 00:00 97.9 F 70 79 17 129/70 01/17/18 20:00 98.5 F 74 90 17 142/67 04/29/18 18:53 97.5 F L 75 80 16 153/86 175/81 01/17/18 18:46 75 18 153/86 01/17/18 18:42 72 18 129/72 01/17/18 17:18 75 18 153/86 01/17/18 16:21 79 01/17/18 15:42 97.9 F 80 18 140/79 Pulse Ox 01/18/18 07:50 98 01/18/18 04:00 100 01/18/18 00:00 98 01/17/18 20:00 95 01/17/18 18:53 100 01/17/18 18:46 97 01/17/18 18:42 97 01/17/18 17:18 97 01/17/18 16:21 01/17/18 15:42 97 Intake and Output 01/17/18 01/18/18 01/18/18 22:59 06:59 14:59 Other: Voiding Method Toilet Toilet # Voids 3 Weight 83.1 kg Blood pressure 125/80 heart rate 69 afebrile maintaining oxygen saturation on room air GENERAL: This is a 57-year-old -[place] female in no apparent distress at the time of my examination. HEENT: Head is atraumatic, normocephalic. Pupils are equal, round. Sclerae anicteric. Conjunctivae are clear. Mucous membranes of the mouth are moist. Neck is supple. There is no jugular venous distention. No carotid bruit is heard. LUNGS: Clear to auscultation no wheezes, rales or rhonchi. No chest wall tenderness is noted on palpation or with deep breathing. HEART: Regular rate and rhythm without murmurs, rubs or gallops. S1 and S2 heard. ABDOMEN: Soft, nontender. Bowel sounds are heard. No organomegaly noted. EXTREMITIES: No evidence of peripheral edema and no calf tenderness noted. VASCULAR: Radial and dorsalis pedis pulses palpated, no evidence of clubbing. NEUROLOGIC: Patient is awake, alert and oriented x3. Results 01/17/18 15:55 01/17/18 15:55 Cardiac Enzymes 01/17/18 01/17/18 01/17/18 Range/Units 15:55 15:55 21:18 AST 16 (14-36) U/L CK-MB (CK-2) 0.2 (0.0-2.4) ng/mL Troponin I <0.012 <0.012 (0.000-0.034) ng/mL 01/18/18 Range/Units 03:46 AST (14-36) U/L CK-MB (CK-2) 0.2 (0.0-2.4) ng/mL Troponin I <0.012 (0.000-0.034) ng/mL Coagulation 01/17/18 Range/Units 15:55 PT 9.9 (9.0-12.0) sec APTT 24.7 (22.0-30.0) sec Lipids 01/18/18 Range/Units 03:46 Triglycerides 57 (<150) mg/dL Cholesterol 101 (<200) mg/dL HDL Cholesterol 60 (40-60) mg/dL CBC 01/17/18 Range/Units 15:55 WBC 7.6 (3.8-10.6) k/uL RBC 4.30 (3.80-5.40) m/uL Hgb 13.1 (11.4-16.0) gm/dL Hct 41.3 (34.0-46.0) % Plt Count 418 (150-450) k/uL Comprehensive Metabolic Panel 01/17/18 Range/Units 15:55 Sodium 142 (137-145) mmol/L Potassium 4.2 (3.5-5.1) mmol/L Chloride 102 (98-107) mmol/L Carbon Dioxide 30 (22-30) mmol/L BUN 13 (7-17) mg/dL Creatinine 0.84 (0.52-1.04) mg/dL Glucose 103 H (74-99) mg/dL Calcium 9.2 (8.4-10.2) mg/dL AST 16 (14-36) U/L ALT 20 (9-52) U/L Alkaline Phosphatase 79 (38-126) U/L Total Protein 6.2 L (6.3-8.2) g/dL Albumin 3.5 (3.5-5.0) g/dL Current Medications Generic Name Dose Route Start Last Admin Trade Name Freq PRN Reason Stop Dose Admin Acetaminophen 650 mg 01/17/18 19:37 01/17/18 19:46 Tylenol Tab PO 650 mg Q4HR PRN Administration Fever and/ or Mild Pain Albuterol Sulfate 2.5 mg 01/17/18 17:23 Ventolin Nebulized INHALATION RT-Q6H PRN Shortness Of Breath Aspirin 325 mg 01/18/18 09:00 Aspirin PO DAILY [facility] Atorvastatin Calcium 40 mg 01/17/18 21:00 01/17/18 22:08 Lipitor PO 40 mg HS NAHOMY Administration Cyanocobalamin 1,000 mcg 01/18/18 12:00 Vitamin B-12 PO 1200 [facility] Cyclobenzaprine HCl 5 mg 01/17/18 17:23 Flexeril PO TID PRN Muscle Spasm Diphenhydramine HCl 25 mg 01/17/18 21:00 01/17/18 22:08 Benadryl PO 25 mg BID [facility] Administration Famotidine 20 mg 01/17/18 21:00 01/17/18 22:08 Pepcid PO 20 mg BID [facility] Administration Metoprolol Succinate 50 mg 01/18/18 09:00 Toprol Xl PO DAILY [facility] Multivitamins 1 each 01/18/18 12:00 Theragran PO DAILY@1200 [facility] Nitroglycerin 0.4 mg 01/17/18 17:21 Nitrostat SUBLINGUAL Q5M PRN Chest Pain Non-Formulary Medication 1 tab 01/18/18 09:00 Calcium/Magnesium/Zinc [Xszowlo-Cuolmkoua-Ctsn Tablet] PO DAILY [facility] Prednisone 50 mg 01/18/18 09:00 PO DAILY [facility] Intake and Output 01/17/18 01/18/18 01/18/18 22:59 06:59 14:59 Other: Voiding Method Toilet Toilet # Voids 3 Weight 83.1 kg 01/17/18 15:55 01/17/18 15:55 Assessment and Plan Assessment: ASSESSMENT 1. Precordial chest pain, an acute coronary event has been ruled out with no EKG evidence of ischemia and negative cardiac enzymes 2. Hypertension, currently on toprol with intermittent blood pressure elevations 3. Dyslipidemia, on atorvastatin 40 mg daily 4. Former tobacco use, smoked 2 packs per day for 40 years quit 9 months ago 5. Remote history of opiate dependence PLAN Obtain 2D echocardiogram and doppler study to assess cardiac structure and function. Perform stress echocardiogram to assess cardiac structure and function. Hold toprol for stress test, can be given after testing. Continue with aspirin and atorvastatin as previously ordered. If stress test is normal she is stable from a cardiac perspective. Follow up with Dr. Goodman in 2-3 weeks. Thank you kindly for this consultation. Nurse Practitioner note has been reviewed, I agree with a documented findings and plan of care. Patient was seen and examined.
[2018-01-18] MEDS ORDERED: DOBUTamine DRIP for NUC MED 250 MG in DEXTROSE/WATER 1 250ML.BAG IV ONE (11:25)
[2018-01-18] MEDS ORDERED: METOPROLOL TARTRATE 5 MG/5 ML VIAL IVP ONE (12:00)
[2018-01-18] MEDS ORDERED: ALPRAZolam 0.25 MG TAB PO PRN (12:17)
[2018-01-18] MEDS ORDERED: SODIUM CHLORIDE 0.9% 1,000 ML in EMPTY BAG 1 BAG IV ONE (12:17)
[2018-01-18] MEDS ORDERED: ALPRAZolam 0.5 MG TAB PO PRN (12:17)
--- NOTE | 2018-01-18 12:38 | EST ---
EXERCISE STRESS DATE OF SERVICE: January 17, 2018 AGE: 57 SEX: Female HT: 67 inches WT: 183 pounds PROTOCOL: Dobutamine Stress Echo STAGE: II DURATION OF EXERCISE: 9:19 minutes HEART RATE REST: 96 BLOOD PRESSURE REST: 155/92 MAXIMUM HEART RATE ACHIEVED: 137 MAXIMUM BLOOD PRESSURE: 153/88 85% MPHR: 67 100% MPHR: 183 METS: INDICATIONS: Chest pain. STRESS DATA: Pretesting physical examination showed a heart rate of 96, pressure is 153/92 mmHg. Baseline EKG showed sinus mechanism. The patient was given dobutamine infusion at dose of 10 esa per kg per minute and increased to 230 mics per kg per minute per protocol. The max heart rate was 137, which is about 84% of maximum predicted heart rate. Maximum blood pressure was 150/76 mmHg. Clinically, the patient developed atypical chest discomfort during the during dobutamine infusion. The EKG showed about [address]-segment depression. ECHOCARDIOGRAM IMAGES: The echocardiogram images from parasternal long axis view, parasternal short axis view, apical 4 chambers and apical 2 chamber view were obtained at the baseline images, at low dose dobutamine infusion, at peak heart rate, as well as on recovery. The baseline echocardiographic images showed inferior hypokinesia. With the dobutamine infusion, I could not see any significant wall motion abnormalities consistent with ischemia, but probably there was myocardial infarction involving the inferior wall. CONCLUSION: 1. Mild EKG changes in response to dobutamine concerning for ischemia. 2. Peak normal echocardiogram in response to dobutamine without any evidence of wall motion abnormalities consistent with ischemia. MMODL / IJN: [id number] /
[2018-01-18] MEDS: METOPROLOL SUCCINATE (ER) 50 MG TAB.ER.24H PO SCH (15:02)
[2018-01-18] MEDS: MULTIVITAMINS, THERA 1 EACH TAB PO SCH (15:03)
[2018-01-18] MEDS: CYANOCOBALAMIN 500 MCG TAB PO SCH (15:03)
--- NOTE | 2018-01-18 15:23 | P.PN ---
Progress Note - Text Progress Note Date: 01/18/18 2. Stress echocardiogram revealed area of hypokinesia on stress echocardiogram images with EKG changes. Cardiac catheterization has been recommended. I have discussed the risks, benefits and alternative therapies for the above-mentioned procedure and for both sedation/analgesia as well as necessary blood product administration, if indicated, as they pertain to this patient. The patient has indicated understanding and acceptance of the risks and procedures discussed. Questions have been answered appropriately. She is agreeable to move forward with the above-stated procedure. This has been boarded for tomorrow morning. She is to remain nothing by mouth after midnight tonight.
[2018-01-18] MEDS: NON-FORMULARY DRUG (Calcium/Magnesium/Zinc [Calcium-Magnesium-Zinc Tablet] 1 TAB) PO SCH (19:59)
[2018-01-18] MEDS: ACETAMINOPHEN TAB 325 MG TAB PO PRN (20:30)
[2018-01-18] MEDS: ATORVASTATIN 40 MG TAB PO SCH (21:36)
[2018-01-19] MEDS: FAMOTIDINE 20 MG TAB PO SCH ×2 (06:52→07:01)
[2018-01-19] MEDS: METOPROLOL SUCCINATE (ER) 50 MG TAB.ER.24H PO SCH (06:52)
[2018-01-19] MEDS ORDERED: ASPIRIN 325 MG TAB PO STA (07:51)
[2018-01-19 08:31] VITALS: RESP 18
[2018-01-19] MEDS ORDERED: ASPIRIN 81 MG PO SCH (09:00)
[2018-01-19] MEDS: NON-FORMULARY DRUG (Calcium/Magnesium/Zinc [Calcium-Magnesium-Zinc Tablet] 1 TAB) PO SCH (10:49)
[2018-01-19] MEDS ORDERED: SODIUM CHLORIDE 0.9% 1,000 ML IV ONE (11:55)
[2018-01-19] MEDS ORDERED: MIDAZOLAM 2 MG/2 ML VIAL IV ONE (12:01)
[2018-01-19] MEDS ORDERED: LIDOCAINE 2% INJ 20 MG/ML SQ ONE (12:03)
[2018-01-19] MEDS: VERAPAMIL SYRINGE (5 MG/10 ML) INTRAARTER ONE ×2 (12:06→12:32)
[2018-01-19] MEDS ORDERED: HEPARIN SODIUM 1,000 UN/ML (10ML VL) IV ONE (12:08)
[2018-01-19] MEDS ORDERED: fentaNYL (PF) 50 MCG/ML 2 ML AMP IV ONE (12:10)
[2018-01-19] MEDS ORDERED: IOPAMIDOL-370 125ML BTL INJ ONE ×2 (12:25)
[2018-01-19] MEDS ORDERED: IOPAMIDOL-370 50ML BTL INJ ONE (12:29)
[2018-01-19] MEDS ORDERED: RX INFO: IV CONTRAST WAS GIVEN 1 EACH MISC MISCELLANE PRN (12:36)
[2018-01-19] MEDS ORDERED: SODIUM CHLORIDE 0.9% 1,000 ML IV SCH (12:45)
[2018-01-19] MEDS: diphenhydrAMINE 25 MG CAP PO SCH ×2 (15:15→15:19)
[2018-01-19] MEDS: CYANOCOBALAMIN 500 MCG TAB PO SCH (15:16)
[2018-01-19] MEDS: predniSONE 50 MG TAB PO SCH (15:16)
[2018-01-19] MEDS: MULTIVITAMINS, THERA 1 EACH TAB PO SCH (15:16)
--- NOTE | 2018-01-19 15:36 | CC ---
CARDIAC CATHETERIZATION REPORT DATE OF SERVICE: January 19, 2018 PERFORMING PHYSICIAN: Yfn Goodman MD, juice scaleman. PROCEDURE PERFORMED: 1. Selective left coronary angiogram. 2. Aortic root angiogram. 3. Left heart catheterization. INDICATION: This is a pleasant 57-year-old female patient who was admitted to the hospital with chest discomfort and underwent dobutamine stress echocardiogram and that came in to be mildly abnormal. In view of that, heart catheterization was recommended. APPROACH: Right radial artery. COMPLICATION: None. LEVEL OF SEDATION: Moderate sedation, length of 30 minutes. PROCEDURE DESCRIPTION: After obtaining an informed consent, the patient was brought to cardiac mechanical laboratory technician. The right radial artery was cannulated using micropuncture technique and a micropuncture wire passed easily. Then I placed a 6-Colomb[place] sheath in the right radial artery. After that I give the patient 2 mg of verapamil IA and 8000 units of heparin IV. I did selective left coronary angiogram using JL3.5 catheters. I did try to do selective right coronary angiogram using JR4 and AL1 catheter, but I was unable to engage the right coronary artery. I did aortic root angiogram using 6-Colombian pigtail catheter, but I was unable to opacify the right coronary artery. The procedure was completed without any complication. SELECTIVE CORONARY ANGIOGRAM: 1. The right coronary artery was not opacified. 2. The left main is angiographically normal. It bifurcates into left circumflex and left anterior descending artery. 3. The left circumflex is large caliber vessel, it is a dominant vessel, it is angiographically normal. 4. The left anterior descending artery is also a large caliber vessel and seems to be angiographically normal with in the proximal portion gives rise into a large diagonal branch which seems to be angiographically normal. HEMODYNAMICS: The left ventricular end-diastolic pressure was about 18-20 mmHg. No gradient was identified across the aortic valve. AORTIC ROOT ANGIOGRAM: The aortic root angiogram was performed in the GREEN projection and using a power injection. The aortic root is angiographically normal. I was able to opacify very small artery, it is probably the right coronary artery which seems to be nondominant. CONCLUSION: 1. Dominant left coronary system. 2. Normal left coronary system angiogram. 3. Non selective right coronary angiogram and the right is a small nondominant. 4. Normal aortic root as well. POSTPROCEDURE MANAGEMENT: 1. Medical treatment. 2. Follow up with the patient. MMVALENTIN / ROBYNN: [id number] /
[2018-01-19 17:35] VITALS: BP 166/81; PULSE 81; TEMP 97.5
[2018-01-20] MEDS ORDERED: ASPIRIN 81 MG PO SCH (09:00)
--- NOTE | 2018-01-21 11:51 | CDI ---
Last Revision, August 2017 Documentation Clarification Form Date: 01/21/18 From: Piper Jesse Pamela Stahl, Overhead Worker between 8:30 am & 5 pm Leah Admit Date: 01/18/2018 3:04:00 PM Patient Name: Etta Kennedy Visit Number: [id number] Discharge Date: 01/19/18 ATTENTION: The Clinical Documentation Specialists (CDI) and [facility] Coding Staff appreciate your assistance in clarifying documentation. Please respond to the clarification below the line at the bottom and electronically sign. The CDI & [facility] Coding staff will review the response and follow-up if needed. Please note: Queries are made part of the Legal Health Record. If you have any questions, please contact the author of this message via ITS. Dr. Miguel Hutchison The patient presented due to atypical/precordial chest pain. Acute coronary syndrome ruled out. Heart cath performed revealing dominant left coronary system, normal left coronary system angiogram, non-selective right coronary angiogram and the right is a small nondominant and normal aortic root. The patients principal diagnosis has not been clearly identified and requires clarification. In your professional opinion, can you please clarify diagnosis, after study, accounted for the patients presenting symptoms and was the reason chiefly responsible for the admission? Please continue to document in your progress notes and discharge summary in order to capture severity of illness and risk of mortality. Include clinical findings that support your diagnosis. MTDD
--- NOTE | 2018-01-22 12:34 | ECHOF ---
Referral Reason:cp MEASUREMENTS -------- HEIGHT: 170.2 cm WEIGHT: 83.0 kg BP: 125/80 RVIDd: 2.8 cm (< 3.3) IVSd: 1.0 cm (0.6 - 1.1) LVIDd: 5.4 cm (3.9 - 5.3) LVPWd: 1.0 cm (0.6 - 1.1) IVSs: 1.5 cm LVIDs: 4.2 cm LVPWs: 1.5 cm LA Diam: 3.5 cm (2.7 - 3.8) LAESV Index (A-L): 24.19 ml/m Ao Diam: 3.0 cm (2.0 - 3.7) AV Cusp: 2.1 cm (1.5 - 2.6) MV EXCURSION: 14.273 mm (> 18.000) MV EF SLOPE: 63 mm/s (70 - 150) EPSS: 1.4 cm MV E Cade: 0.83 m/s MV DecT: 197 ms MV A Cade: 0.99 m/s MV E/A Ratio: 0.83 RAP: 5.00 mmHg RVSP: 19.91 mmHg FINDINGS -------- Sinus rhythm. This was a technically adequate study. The left ventricle is mildly dilated. Left ventricular wall thickness is normal. Overall left nena tricular systolic function is mildly impaired with, an EF between 45 - 50 %. The right ventricle is normal in size. Normal LA size by volume 22+/-6 ml/m2. The right atrium is normal in size. The aortic valve is trileaflet and appears structurally normal. The mitral valve leaflets are mildly thickened. There is trace to mild mitral regurgitation. Mild tricuspid regurgitation present. Right ventricular systolic pressure is normal at < 35 mmHg. Trace/mild (physiologic) pulmonic regurgitation. The aortic root size is normal. Normal inferior vena cava with normal inspiratory collapse consistent with estimated right atrial pre ssure of 5 mmHg. There is no pericardial effusion. CONCLUSIONS -------- 1. Sinus rhythm. 2. This was a technically adequate study. 3. The left ventricle is mildly dilated. 4. Left ventricular wall thickness is normal. 5. Overall left ventricular systolic function is mildly impaired with, an EF between 45 - 50 %. 6. The right ventricle is normal in size. 7. Normal LA size by volume 22+/-6 ml/m2. 8. The right atrium is normal in size. 9. The aortic valve is trileaflet and appears structurally normal. 10. The mitral valve leaflets are mildly thickened. 11. There is trace to mild mitral regurgitation. 12. Mild tricuspid regurgitation present. 13. Right ventricular systolic pressure is normal at < 35 mmHg. 14. Trace/mild (physiologic) pulmonic regurgitation. 15. The aortic root size is normal. 16. Normal inferior vena cava with normal inspiratory collapse consistent with estimated right atrial pressure of 5 mmHg. 17. There is no pericardial effusion. IN [employer] MEMBER: Sarah Pyle RDCS
--- NOTE | 2018-01-26 16:55 | CDI ---
Last Revision, August 2017 Documentation Clarification Form Date: 01/26/2018 From: Piper Jesse Pamela Maribeth, Care Assistant Hours-8:30 am & 5 pm M-F Admit Date: 01/18/2018 3:04:00 PM Patient Name: Etta Kennedy Visit Number: [id number] Discharge Date: 01/19/18 ATTENTION: The Clinical Documentation Specialists (CDI) and [facility] Coding Staff appreciate your assistance in clarifying documentation. Please respond to the clarification below the line at the bottom and electronically sign. The CDI & [facility] Coding staff will review the response and follow-up if needed. Please note: Queries are made part of the Legal Health Record. If you have any questions, please contact the author of this message via ITS. Dr. Miguel Hutchison The patient presented due to atypical/precordial chest pain. Acute coronary syndrome ruled out. Heart cath performed revealing dominant left coronary system, normal left coronary system angiogram, non-selective right coronary angiogram and the right is a small nondominant and normal aortic root. The patients principal diagnosis has not been clearly identified and requires clarification. In your professional opinion, can you please clarify the diagnosis, after study , accounted for the patients presenting symptoms and was the reason chiefly responsible for the admission? Please continue to document in your progress notes and discharge summary in order to capture severity of illness and risk of mortality. Include clinical findings that support your diagnosis. MTDD
--- NOTE | 2018-01-28 16:30 | CDI ---
Last Revision, August 2017 Documentation Clarification Form Date: 01/28/2018 From: Piper Jesse Pamela Maribeth, Manager Account Management Hours-8:30 am & 5 pm M-F Admit Date: 01/18/2018 3:04:00 PM Patient Name: Etta Kennedy Visit Number: [id number] Discharge Date: 01/19/18 ATTENTION: The Clinical Documentation Specialists (CDI) and [facility] Coding Staff appreciate your assistance in clarifying documentation. Please respond to the clarification below the line at the bottom and electronically sign. The CDI & [facility] Coding staff will review the response and follow-up if needed. Please note: Queries are made part of the Legal Health Record. If you have any questions, please contact the author of this message via ITS. Dr. Miguel Hutchison The patient presented due to atypical/precordial chest pain. Acute coronary syndrome ruled out. Heart cath performed revealing dominant left coronary system, normal left coronary system angiogram, non-selective right coronary angiogram and the right is a small nondominant and normal aortic root. The patients principal diagnosis has not been clearly identified and requires clarification. In your professional opinion, can you please clarify which diagnosis, after study, accounted for the patients presenting symptoms and was the reason chiefly responsible for the admission? Please continue to document in your progress notes and discharge summary in order to capture severity of illness and risk of mortality. Include clinical findings that support your diagnosis. CROW
--- NOTE | 2018-01-28 23:05 | DS ---
DISCHARGE SUMMARY ADDENDUM TO DISCHARGE SUMMARY: Costochondritis versus GERD-induced chest pain. MMODL / IJN: [id number] /
== END 2018-01-19 18:26 | disposition home or self-care (01) | DRG 206 ==
LOC: EC 15:36 → 3OBS 17:24 → OBSVTOIN 01-18 15:04
PROVIDERS: ADMIT Family Medicine; ATTEND Family Medicine
PROC: B211YZZ Fluoroscopy of Multiple Coronary Arteries using Other Contrast (ICD-10-PCS; 2018-01-19)
PROC: B310YZZ Fluoroscopy of Thoracic Aorta using Other Contrast (ICD-10-PCS; 2018-01-19)
PROC: 4A023N7 Measurement of Cardiac Sampling and Pressure, Left Heart, Percutaneous Approach (ICD-10-PCS; principal; 2018-01-19 11:30)
DX: M94.0 Chondrocostal junction syndrome [Tietze] (principal); K21.9 Gastro-esophageal reflux disease without esophagitis; E78.5 Hyperlipidemia, unspecified; J44.9 Chronic obstructive pulmonary disease, unspecified; I10 Essential (primary) hypertension; M54.9 Dorsalgia, unspecified; F41.9 Anxiety disorder, unspecified; F11.21 Opioid dependence, in remission; F31.9 Bipolar disorder, unspecified; Z90.710 Acquired absence of both cervix and uterus; Z90.81 Acquired absence of spleen; Z87.891 Personal history of nicotine dependence; Z82.49 Family history of ischemic heart disease and other diseases of the circulatory system; Z79.82 Long term (current) use of aspirin; Z79.899 Other long term (current) drug therapy; Z86.718 Personal history of other venous thrombosis and embolism; Z88.0 Allergy status to penicillin; Z88.2 Allergy status to sulfonamides
CPT/HCPCS: 36415; 71045; 71046; 80053; 80061; 82550; 82553; 83735; 84484; 85025; 85379; 85610; 85730; 93005; 93306; 93351; 93458; 94760; 99285

== ENCOUNTER 2018-01-29 02:18 | Emergency (ER) | payer OTHER ==
--- NOTE | 2018-01-29 02:30 | ED ---
Arrhythmia/Palpitations HPI - General Stated Complaint: Chest pain Time Seen by Provider: 01/29/18 02:18 Source: patient, RN notes reviewed, old records reviewed Mode of arrival: EMS Limitations: no limitations - History of Present Illness Initial Comments: This is a 57-year-old female who presents with complaints of palpitations and midsternal chest pain is sharp and moderate in severity. She states she was just admitted to the hospital last week did have workup done for palpitations and chest pain she's not sure with the answer was to the workup. He recurrence tonight. She was brought in by EMS. She denies any fevers chills nausea vomiting sweats no cough no overt shortness of breath no other modifying factors at this time. Per paramedics she was noted have 4-8 PVCs per minute on their monitor. Patient is on blood pressure medication currently. MD Complaint: "skipped beats", palpitations - Related Data Home Medications Medication Instructions Recorded Confirmed Atorvastatin Calcium [Lipitor] 40 mg PO HS 10/23/17 01/17/18 Metoprolol Succinate (ER) [Toprol 50 mg PO DAILY 10/23/17 01/17/18 Xl] diphenhydrAMINE HCL [Benadryl] 50 mg PO Q4-6H PRN 10/23/17 01/17/18 Albuterol Inhaler [Ventolin Hfa 1 - 2 puff INHALATION RT-Q6H PRN 01/17/18 Inhaler] Aspirin 81 mg PO DAILY 01/17/18 01/17/18 Cholecalciferol [Vitamin D3] 1,000 unit PO DAILY 01/17/18 01/17/18 Previous Rx's Medication Instructions Recorded Ibuprofen [Motrin] 600 mg PO Q6HR PRN #20 tab 01/29/18 Potassium Chloride ER [K-Dur 20] 20 meq PO BID #14 tab 01/29/18 Allergies Allergy/AdvReac Type Severity Reaction Status Date / Time Penicillins Allergy Rash/Hives Verified 01/17/18 17:56 Sulfa (Sulfonamide Allergy Rash/Hives Verified 01/17/18 17:56 Antibiotics) Review of Systems ROS Statement: Those systems with pertinent positive or pertinent negative responses have been documented in the HPI. ROS Other: All systems not noted in ROS Statement are negative. Past Medical History Past Medical History: COPD, Deep Vein Thrombosis (DVT), Hyperlipidemia, Hypertension Additional Past Medical History / Comment(s): back pain due to injury History of Any Multi-Drug Resistant Organisms: None Reported Past Surgical History: Hysterectomy Additional Past Surgical History / Comment(s): splenectomy Past Anesthesia/Blood Transfusion Reactions: No Reported Reaction Past Psychological History: Anxiety, Bipolar Smoking Status: Former smoker Past Alcohol Use History: None Reported Past Drug Use History: Prescription Drug Abuse - Past Family History Father Family Medical History: Congestive Heart Failure (CHF) General Exam - General Exam Comments Initial Comments: This is a well-developed well-nourished awake alert oriented 3 female Limitations: no limitations General appearance: alert, anxious Head exam: Present: atraumatic, normocephalic, normal inspection Eye exam: Present: normal appearance, PERRL, EOMI. Absent: scleral icterus, conjunctival injection, periorbital swelling ENT exam: Present: normal exam, mucous membranes moist Neck exam: Present: normal inspection. Absent: tenderness, meningismus, lymphadenopathy Respiratory exam: Present: normal lung sounds bilaterally, chest wall tenderness (Reproducible tenderness palpation proximal anterior chest wall the costosternal margins). Absent: respiratory distress, wheezes, rales, rhonchi, stridor Cardiovascular Exam: Present: regular rate, normal rhythm, normal heart sounds, other (Occasional PVCs noted). Absent: systolic murmur, diastolic murmur, rubs , gallop, clicks GI/Abdominal exam: Present: soft, normal bowel sounds. Absent: distended, tenderness, guarding, rebound, rigid Extremities exam: Present: normal inspection, full ROM, normal capillary refill. Absent: tenderness, pedal edema, joint swelling, calf tenderness Back exam: Present: normal inspection Neurological exam: Present: alert, oriented X3, CN II-XII intact Psychiatric exam: Present: normal affect, normal mood Skin exam: Present: warm, dry, intact, normal color. Absent: rash Course Vital Signs 01/29/18 01/29/18 01/29/18 02:21 03:26 03:44 Temperature 98.3 F 97.8 F Pulse Rate 101 H 94 95 Respiratory 18 18 Rate Blood Pressure 138/74 146/75 O2 Sat by Pulse 97 98 Oximetry 01/29/18 04:00 Temperature Pulse Rate 93 Respiratory 15 Rate Blood Pressure 147/79 O2 Sat by Pulse 99 Oximetry - Reevaluation(s) Reevaluation #1: 01/29/18 02:35 Review of history shows hysterectomy splenectomy anxiety bipolar disorder former smoker also hypertension and dyslipidemia. EKG Findings - EKG Results: EKG: interpreted by STEPHANIE, sinus rhythm (Sinus rhythm rate 95 MI interval 172 QRS 86 QT since QTC 372/467 there is evidence of voltage criteria for LVH no acute ST-T wave changes) Medical Decision Making - Medical Decision Making The patient is feeling much improved at this time she'll be discharged the palpitations are resolved the patient does have subtherapeutic potassium levels will be placed on a short course of potassium supplementation the chest pain is chest wall pain. She'll be discharged follow-up with her doctor return when necessary - Lab Data Result diagrams: 01/29/18 02:34 01/29/18 02:34 Lab Results 01/29/18 01/29/18 01/29/18 Range/Units 02:34 02:34 02:34 WBC 12.6 H (3.8-10.6) k/uL RBC 4.74 (3.80-5.40) m/uL Hgb 14.1 (11.4-16.0) gm/dL Hct 45.0 (34.0-46.0) % MCV 94.9 (80.0-100.0) fL MCH 29.9 (25.0-35.0) pg MCHC 31.5 (31.0-37.0) g/dL RDW 13.2 (11.5-15.5) % Plt Count 446 (150-450) k/uL Neutrophils % 62 % Lymphocytes % 28 % Monocytes % 4 % Eosinophils % 4 % Basophils % 0 % Neutrophils # 7.9 H (1.3-7.7) k/uL Lymphocytes # 3.6 (1.0-4.8) k/uL Monocytes # 0.5 (0-1.0) k/uL Eosinophils # 0.4 (0-0.7) k/uL Basophils # 0.0 (0-0.2) k/uL PT (9.0-12.0) sec INR (<1.2) APTT (22.0-30.0) sec D-Dimer (<0.60) mg/L FEU Sodium 145 (137-145) mmol/L Potassium 3.3 L (3.5-5.1) mmol/L Chloride 101 (98-107) mmol/L Carbon Dioxide 31 H (22-30) mmol/L Anion Gap 13 mmol/L BUN 21 H (7-17) mg/dL Creatinine 1.00 (0.52-1.04) mg/dL Est GFR (CKD-EPI)AfAm 72 (>60 ml/min/1.73 sqM) Est GFR (CKD-EPI)NonAf 63 (>60 ml/min/1.73 sqM) Glucose 112 H (74-99) mg/dL Calcium 9.8 (8.4-10.2) mg/dL Magnesium 2.2 (1.6-2.3) mg/dL Total Bilirubin 0.3 (0.2-1.3) mg/dL AST 16 (14-36) U/L ALT 30 (9-52) U/L Alkaline Phosphatase 80 (38-126) U/L Total Creatine Kinase 50 (30-135) U/L CK-MB (CK-2) 0.4 (0.0-2.4) ng/mL CK-MB (CK-2) Rel Index 0.8 Troponin I <0.012 (0.000-0.034) ng/mL Total Protein 7.0 (6.3-8.2) g/dL Albumin 4.2 (3.5-5.0) g/dL TSH 1.160 (0.465-4.680) mIU/L 01/29/18 Range/Units 02:34 WBC (3.8-10.6) k/uL RBC (3.80-5.40) m/uL Hgb (11.4-16.0) gm/dL Hct (34.0-46.0) % MCV (80.0-100.0) fL MCH (25.0-35.0) pg MCHC (31.0-37.0) g/dL RDW (11.5-15.5) % Plt Count (150-450) k/uL Neutrophils % % Lymphocytes % % Monocytes % % Eosinophils % % Basophils % % Neutrophils # (1.3-7.7) k/uL Lymphocytes # (1.0-4.8) k/uL Monocytes # (0-1.0) k/uL Eosinophils # (0-0.7) k/uL Basophils # (0-0.2) k/uL PT 9.4 (9.0-12.0) sec INR 0.9 (<1.2) APTT 23.4 (22.0-30.0) sec D-Dimer 0.66 H (<0.60) mg/L FEU Sodium (137-145) mmol/L Potassium (3.5-5.1) mmol/L Chloride (98-107) mmol/L Carbon Dioxide (22-30) mmol/L Anion Gap mmol/L BUN (7-17) mg/dL Creatinine (0.52-1.04) mg/dL Est GFR (CKD-EPI)AfAm (>60 ml/min/1.73 sqM) Est GFR (CKD-EPI)NonAf (>60 ml/min/1.73 sqM) Glucose (74-99) mg/dL Calcium (8.4-10.2) mg/dL Magnesium (1.6-2.3) mg/dL Total Bilirubin (0.2-1.3) mg/dL AST (14-36) U/L ALT (9-52) U/L Alkaline Phosphatase (38-126) U/L Total Creatine Kinase (30-135) U/L CK-MB (CK-2) (0.0-2.4) ng/mL CK-MB (CK-2) Rel Index Troponin I (0.000-0.034) ng/mL Total Protein (6.3-8.2) g/dL Albumin (3.5-5.0) g/dL TSH (0.465-4.680) mIU/L - Radiology Data Radiology results: report reviewed (I did review the imaging and reports no acute findings I did discuss the case with the radiologist.), image reviewed Disposition Clinical Impression: Premature ventricular contractions, Hypokalemia, Costochondritis Disposition: HOME SELF-CARE Condition: Good Instructions: Palpitations (ED), Premature Ventricular Contractions (ED), Hypokalemia (ED), Costochondritis (ED) Prescriptions: Ibuprofen [Motrin] 600 mg PO Q6HR PRN #20 tab PRN Reason: Pain Potassium Chloride ER [K-Dur 20] 20 meq PO BID #14 tab Is patient prescribed a controlled substance at d/c from ED?: No Referrals: None,Stated [Primary Care Provider] - 1-2 days
[2018-01-29 02:42] LABS: Basophils % (A) 0 %; Eosinophils # (A) 0.4 k/uL (0-0.7); Eosinophils % (A) 4 %; HGB 14.1 gm/dL (11.4-16.0); Lymphocytes # (A) 3.6 k/uL (1.0-4.8); Lymphocytes % (A) 28 %; MCH 29.9 pg (25.0-35.0); MCHC 31.5 g/dL (31.0-37.0); MCV 94.9 fL (80.0-100.0); Mean Platelet Volume 7.5; Monocytes # (A) 0.5 k/uL (0-1.0); Monocytes % (A) 4 %; Neutrophils # (A) 7.9 k/uL (1.3-7.7); Neutrophils % (A) 62 %; Platelet Count 446 k/uL (150-450); RBC 4.74 m/uL (3.80-5.40); RDW 13.2 % (11.5-15.5); WBC 12.6 k/uL (3.8-10.6)
[2018-01-29 02:52] LABS: Albumin 4.2 g/dL (3.5-5.0); Calcium 9.8 mg/dL (8.4-10.2); Magnesium 2.2 mg/dL (1.6-2.3); Potassium 3.3 mmol/L (3.5-5.1); Total Bilirubin 0.3 mg/dL (0.2-1.3)
[2018-01-29 02:55] LABS: Creatine Kinase 50 U/L (30-135); INR 0.9 (<1.2); Prothrombin Time 9.4 sec (9.0-12.0)
--- NOTE | 2018-01-29 02:55 | XR ---
EXAM: XR Chest, 2 Views CLINICAL HISTORY: : dysrhythmia TECHNIQUE: Frontal and lateral views of the chest. COMPARISON: 01/17/18 FINDINGS: Lungs: Unremarkable. No consolidation. Pleural space: Unremarkable. No pneumothorax. Heart: Unremarkable. No cardiomegaly. Mediastinum: Unremarkable. Bones/joints: Unremarkable. IMPRESSION: Normal chest x-rays. No change from prior study
[2018-01-29 02:56] LABS: Partial Thromboplastin Time 23.4 sec (22.0-30.0)
[2018-01-29 02:59] LABS: D-Dimer 0.66 mg/L FEU (<0.60)
[2018-01-29 03:09] LABS: Creatine Kinase MB 0.4 ng/mL (0.0-2.4); Troponin I <0.012 ng/mL (0.000-0.034)
[2018-01-29] MEDS ORDERED: RX INFO: IV CONTRAST WAS GIVEN 1 EACH MISC MISCELLANE PRN (04:18)
[2018-01-29] MEDS ORDERED: POTASSIUM CHLORIDE ER 20 MEQ TAB.ER PO STA (04:22)
--- NOTE | 2018-01-29 05:42 | CT ---
EXAM: CT Angiography Chest With Intravenous Contrast CLINICAL HISTORY: Chest pain. TECHNIQUE: Axial computed tomographic angiography images of the chest with intravenous contrast using pulmonary embolism protocol. DLP is 302.80 mGy-cm. This CT exam was performed using one or more of the following dose reduction techniques: automated exposure control, adjustment of the mA and/or kV according to patient size, and/or use of iterative reconstruction technique. MIP reconstructed images were created and reviewed. COMPARISON: No relevant prior studies available. FINDINGS: Limitations: Suboptimal bolus timing limits evaluation. Pulmonary arteries: Within the above-mentioned limitation, there is no definitive evidence of pulmonary embolism. Aorta: No acute findings. No thoracic aortic aneurysm. Lungs: Linear and dependent atelectasis is seen involving both lower lobes. No mass. Pleural space: Unremarkable. No significant effusion. No pneumothorax. Heart: Unremarkable. No cardiomegaly. No significant pericardial effusion. No evidence of RV dysfunction. Bones/joints: No acute fracture. No dislocation. Soft tissues: Unremarkable. Lymph nodes: Unremarkable. No enlarged lymph nodes. Spleen: Multiple splenules are seen in the expected location of the spleen. IMPRESSION: 1. No definitive evidence of pulmonary embolism. If clinical suspicion remains, consider nuclear medicine VQ scan. 2. Linear and dependent atelectasis involving both lower lobes. Critical Value Communications 01/29/18 05:32 Call Doctor Regarding Pulmonary Embolism, called Dr. Clayton on 01/29 05:32 (-04:00)
[2018-01-29 05:49] VITALS: BP 144/79; PULSE 92; RESP 16; TEMP 97.6
== END 2018-01-29 05:50 | disposition home or self-care (01) ==
LOC: EC 02:18
DX: E87.6 Hypokalemia (principal); M94.0 Chondrocostal junction syndrome [Tietze]; I49.3 Ventricular premature depolarization; E78.5 Hyperlipidemia, unspecified; I10 Essential (primary) hypertension; J44.9 Chronic obstructive pulmonary disease, unspecified; Z87.891 Personal history of nicotine dependence; Z79.82 Long term (current) use of aspirin; Z79.899 Other long term (current) drug therapy; Z88.0 Allergy status to penicillin; Z88.2 Allergy status to sulfonamides; Z87.39 Personal history of other diseases of the musculoskeletal system and connective tissue; Z82.49 Family history of ischemic heart disease and other diseases of the circulatory system
CPT/HCPCS: 36415; 93005; 85379; 80053; 84443; 82550; 82553; 83735; 84484; 85025; 85610; 85730; 71046; 71275; 99285; Q9967

== ENCOUNTER 2018-02-26 12:24 | Emergency (ER) | payer OTHER ==
[2018-02-26 12:33] VITALS: BP 138/88; PULSE 102; RESP 18; TEMP 98.3
--- NOTE | 2018-02-26 12:50 | ED ---
ENT HPI - General Chief complaint: Dental/Oral Stated complaint: Broken Tooth Time Seen by Provider: 02/26/18 12:37 Source: patient, RN notes reviewed Mode of arrival: ambulatory Limitations: no limitations - History of Present Illness Initial comments: This is a 57-year-old female who presents to the emergency department with chief complaint of dental pain. Patient states that she recently moved to [place] from [place]. She states that 8 months ago she broke a right upper tooth. She states that over the past couple of days she has developed pain. She states that she has been taking ibuprofen and applying ice. She denies any drainage. Denies any radiation of pain to the jaw or neck. Denies fevers or chills, chest pain shortness of breath, abdominal pain, nausea or vomiting. - Related Data Home Medications Medication Instructions Recorded Confirmed Atorvastatin Calcium [Lipitor] 40 mg PO HS 10/23/17 01/17/18 Metoprolol Succinate (ER) [Toprol 50 mg PO DAILY 10/23/17 01/17/18 Xl] diphenhydrAMINE HCL [Benadryl] 50 mg PO Q4-6H PRN 10/23/17 01/17/18 Albuterol Inhaler [Ventolin Hfa 1 - 2 puff INHALATION RT-Q6H PRN 01/17/18 Inhaler] Aspirin 81 mg PO DAILY 01/17/18 01/17/18 Cholecalciferol [Vitamin D3] 1,000 unit PO DAILY 01/17/18 01/17/18 Previous Rx's Medication Instructions Recorded Ibuprofen [Motrin] 600 mg PO Q6HR PRN #20 tab 01/29/18 Potassium Chloride ER [K-Dur 20] 20 meq PO BID #14 tab 01/29/18 Clindamycin [Cleocin] 450 mg PO TID #90 cap 02/26/18 Ibuprofen 600 mg PO Q6HR #20 tablet 02/26/18 Allergies Allergy/AdvReac Type Severity Reaction Status Date / Time Penicillins Allergy Rash/Hives Verified 02/26/18 12:32 Sulfa (Sulfonamide Allergy Rash/Hives Verified 02/26/18 12:32 Antibiotics) Review of Systems ROS Statement: Those systems with pertinent positive or pertinent negative responses have been documented in the HPI. ROS Other: All systems not noted in ROS Statement are negative. Past Medical History Past Medical History: COPD, Deep Vein Thrombosis (DVT), Hyperlipidemia, Hypertension Additional Past Medical History / Comment(s): back pain due to injury History of Any Multi-Drug Resistant Organisms: None Reported Past Surgical History: Hysterectomy Additional Past Surgical History / Comment(s): splenectomy Past Anesthesia/Blood Transfusion Reactions: No Reported Reaction Past Psychological History: Anxiety, Bipolar Smoking Status: Former smoker Past Alcohol Use History: None Reported Past Drug Use History: Prescription Drug Abuse - Past Family History Father Family Medical History: Congestive Heart Failure (CHF) General Exam - General Exam Comments Initial Comments: General: Awake and alert, well-developed; in no apparent distress. HEENT: Head atraumatic, normocephalic. Pupils are equal, round and reactive to light. Extraocular movements intact. Tooth #3 is missing crown. Tenderness along the gumline. No masses or areas of fluctuance noted. Oropharynx moist without erythema or exudate. Neck: Supple. Normal ROM. Cardiovascular: Regular rate and rhythm. No murmurs, rubs or gallops. Chest symmetrical. Respiratory: Lungs clear to auscultation bilaterally. No wheezes, rales or rhonchi. Normal respiratory effort with no use of accessory muscles. Musculoskeletal: Normal ROM, no tenderness bilateral upper and lower extremities. Ambulating normally. Skin: [place], warm and dry without rashes or lesions. Neurological: Alert and oriented x3. CN II-XII grossly intact. Speech is fluent and answers are appropriate. No focal neuro deficits. Psychiatric: Normal mood and affect. No overt signs of depression or anxiety noted. Limitations: no limitations Course Vital Signs 02/26/18 12:30 Temperature 98.3 F Pulse Rate 102 H Respiratory 18 Rate Blood Pressure 138/88 O2 Sat by Pulse 99 Oximetry Medical Decision Making - Medical Decision Making This is a 57-year-old female presents to the emergency department with chief complaint of dental pain. Tooth #3 is missing a crown. No abscess as. Vital signs are stable and patient denies any recent fevers or chills. She will be started on clindamycin and ibuprofen 600. Patient does state that she has a healthy [place] plan insurance. I notified patient that she does get dental coverage and that she is to call local dentists to schedule a follow-up appointment. Patient will also be provided with contact information for the [facility] dental clinic. Patient is in no acute distress and will be discharged home at this time. She is in agreement with plan and voices understanding. All questions answered. Disposition Clinical Impression: Fracture of tooth, Toothache Disposition: HOME SELF-CARE Condition: Good Instructions: Toothache (ED) Additional Instructions: Please take medications as prescribed. Please follow up with a dentist as soon as possible. Please follow up with primary care provider within 1-2 days. Return to emergency department if symptoms should worsen or any concerns arise. Please follow up with the [facility] dental clinic. [facility] [place] [address]. Phone number for new patients or [phone] for existing patients. Prescriptions: Clindamycin [Cleocin] 450 mg PO TID #90 cap Ibuprofen 600 mg PO Q6HR #20 tablet Is patient prescribed a controlled substance at d/c from ED?: No Referrals: None,Stated [Primary Care Provider] - 1-2 days Time of Disposition: 12:49
== END 2018-02-26 13:14 | disposition home or self-care (01) ==
LOC: EC 12:24
DX: S02.5XXA Fracture of tooth (traumatic), initial encounter for closed fracture (principal); J44.9 Chronic obstructive pulmonary disease, unspecified; E78.5 Hyperlipidemia, unspecified; I10 Essential (primary) hypertension; Z87.891 Personal history of nicotine dependence; Z79.82 Long term (current) use of aspirin; Z79.899 Other long term (current) drug therapy; Z88.0 Allergy status to penicillin; Z88.2 Allergy status to sulfonamides
CPT/HCPCS: 99282

== ENCOUNTER 2018-03-09 12:25 | Emergency (ER) | payer OTHER ==
[2018-03-09 12:37] VITALS: RESP 18; TEMP 98.4
--- NOTE | 2018-03-09 13:13 | ED ---
General Adult HPI - General Chief complaint: Extremity Problem,Nontraumatic Stated complaint: Left Leg Pain Time Seen by Provider: 03/09/18 12:41 Source: patient, RN notes reviewed Mode of arrival: ambulatory Limitations: no limitations - History of Present Illness Initial comments: 57-year-old female presents to the emergency department for a chief complaint of left knee and leg pain 2 weeks. Patient describes the pain as a sharp shooting pain from her anterior knee going up her anterior thigh. Patient states the pain is also a cramping pain in her thigh muscles of the left leg. Patient states she is able to walk on it. Patient has a history of "torn ligaments" years ago in the left knee. Patient admits she has been diagnosed with osteoarthritis in the past although she is unsure if it is in her left leg. Patient denies back or hip pain. Patient denies any pain in the foot or calf. Patient denies history of DVT. Patient denies any injuries. Patient has no other complaints at this time including shortness of breath, chest pain, abdominal pain, nausea or vomiting, headache, or visual changes. - Related Data Home Medications Medication Instructions Recorded Confirmed Atorvastatin Calcium [Lipitor] 40 mg PO HS 10/23/17 03/09/18 Metoprolol Succinate (ER) [Toprol 50 mg PO DAILY 10/23/17 03/09/18 Xl] diphenhydrAMINE HCL [Benadryl] 50 mg PO Q4-6H PRN 10/23/17 03/09/18 Albuterol Inhaler [Ventolin Hfa 1 - 2 puff INHALATION RT-Q6H PRN 01/17/18 Inhaler] Aspirin 81 mg PO DAILY 01/17/18 03/09/18 Cholecalciferol [Vitamin D3] 1,000 unit PO DAILY 01/17/18 03/09/18 Ascorbic Acid [Vitamin C] 1,000 mg PO DAILY 03/09/18 03/09/18 Ibuprofen 600 mg PO Q6HR PRN 03/09/18 03/09/18 Ranitidine HCl [Zantac] 150 mg PO BID 03/09/18 03/09/18 Previous Rx's Medication Instructions Recorded Clindamycin [Cleocin] 450 mg PO TID #90 cap 02/26/18 Acetaminophen [Tylenol] 500 mg PO Q4-6H PRN #20 tab 03/09/18 Ibuprofen [Motrin] 600 mg PO Q8HR PRN #20 tab 03/09/18 Allergies Allergy/AdvReac Type Severity Reaction Status Date / Time Penicillins Allergy Rash/Hives Verified 03/09/18 12:51 Sulfa (Sulfonamide Allergy Rash/Hives Verified 03/09/18 12:51 Antibiotics) Review of Systems ROS Statement: Those systems with pertinent positive or pertinent negative responses have been documented in the HPI. ROS Other: All systems not noted in ROS Statement are negative. Past Medical History Past Medical History: COPD, Deep Vein Thrombosis (DVT), Hyperlipidemia, Hypertension Additional Past Medical History / Comment(s): back pain due to injury History of Any Multi-Drug Resistant Organisms: None Reported Past Surgical History: Hysterectomy Additional Past Surgical History / Comment(s): splenectomy Past Anesthesia/Blood Transfusion Reactions: No Reported Reaction Past Psychological History: Anxiety, Bipolar Smoking Status: Former smoker Past Alcohol Use History: None Reported Past Drug Use History: None Reported - Past Family History Father Family Medical History: Congestive Heart Failure (CHF) General Exam Limitations: no limitations General appearance: alert, in no apparent distress Head exam: Present: atraumatic Eye exam: Present: normal appearance ENT exam: Present: normal exam, mucous membranes moist Neck exam: Present: normal inspection, full ROM. Absent: tenderness, meningismus, lymphadenopathy Respiratory exam: Present: normal lung sounds bilaterally. Absent: respiratory distress, wheezes, rales, rhonchi, stridor Cardiovascular Exam: Present: regular rate, normal rhythm, normal heart sounds. Absent: systolic murmur, diastolic murmur, rubs, gallop, clicks Extremities exam: Present: full ROM (Patient has full range of motion of the left hip. Patient has full range motion of the left knee but does have pain with flexion of the left knee.), normal capillary refill (Refill less than 2 seconds and pedal pulse 2+ in the left lower extremity), other (Sensation intact in the left lower extremity). Absent: tenderness (No tenderness noted over the left knee), pedal edema, joint swelling Back exam: Present: normal inspection, full ROM. Absent: tenderness Course Vital Signs 03/09/18 12:34 Temperature 98.4 F Pulse Rate 104 H Respiratory 18 Rate Blood Pressure 150/92 O2 Sat by Pulse 99 Oximetry Medical Decision Making - Medical Decision Making 57-year-old female presents to the emergency determine for chief complaint of left lower extremity pain 2 weeks. Patient has a history of osteoarthritis. Patient states the pain as a sharp shooting pain from her knee that goes up her leg. Patient has not followed up with primary care for this. Patient has also tried ligaments in the left knee 8 years ago. On exam patient has full range of motion of the left knee but does have some pain with full flexion of the left knee. Full range motion of the left hip. No tenderness in the lumbar spine with full range of motion of the lumbar spine. Neurovascular intact in the left lower extremity. X-ray of the left femur and knee show no acute fracture or dislocation. There is mild to moderate tricompartmental joint space loss most prominent patellofemoral compartment in the knee. Patient likely has pain from arthritis of the left knee. Patient was given an Tye wrap in the emergency department. She was given a prescription for Motrin and Tylenol. She is to follow up with primary care or orthopedics in one to 2 days. Disposition Clinical Impression: Knee pain, left Disposition: HOME SELF-CARE Condition: Good Instructions: Knee Pain (ED) Additional Instructions: Please take Motrin and Tylenol for pain. Please rest ice and elevate the left knee. Please follow-up with primary care or orthopedics in one to 2 days. Prescriptions: Acetaminophen [Tylenol] 500 mg PO Q4-6H PRN #20 tab PRN Reason: Pain Ibuprofen [Motrin] 600 mg PO Q8HR PRN #20 tab PRN Reason: Pain Is patient prescribed a controlled substance at d/c from ED?: No Referrals: Paul Velarde MD [STAFF PHYSICIAN] - 1-2 days Vahe Colby DO [Doctor of Osteopathic Medicine] - 1-2 days Time of Disposition: 14:53
--- NOTE | 2018-03-09 14:06 | XR ---
EXAMINATION TYPE: XR femur LT, XR knee complete LT DATE OF EXAM: 03/09/2018 CLINICAL HISTORY: Injury to knee a few years ago presents with pain and cramping in left femur and kn ee TECHNIQUE: Two views of the left femur are obtained. 3 views of left knee are acquired. COMPARISON: None FINDINGS: There is no acute fracture or dislocation seen in the left femur. The left hip joint appe ars within normal limits. A few left-sided pelvic phleboliths are seen. Images of left knee show no acute fracture or dislocation. There is mild to moderate tricompartment j oint space loss most prominent patellofemoral compartment. There is tibial condylar spurring. Overlyi ng soft tissue is unremarkable. IMPRESSION: There is no acute fracture or dislocation in the left knee or femur.
--- NOTE | 2018-03-09 14:21 | US ---
EXAMINATION TYPE: US venous doppler duplex LE LT DATE OF EXAM: 03/09/2018 12:58 PM COMPARISON: NONE CLINICAL HISTORY: Left lower extremity pain. SIDE PERFORMED: Left TECHNIQUE: The lower extremity deep venous system is examined utilizing real time linear array sonog aminata with graded compression, doppler sonography and color-flow sonography. VESSELS IMAGED: External Iliac Vein (EIV) Common Femoral Vein Deep Femoral Vein Greater Saphenous Vein * Femoral Vein Popliteal Vein Small Saphenous Vein * Proximal Calf Veins (* superficial vessels) Grayscale, color doppler, spectral doppler imaging performed of the deep veins of the left lower extr emity. There is normal flow, compressibility, vascular waveforms. Left Leg: Negative for DVT IMPRESSION: No sonographic evidence of deep venous thrombosis within the left lower extremity.
[2018-03-09 15:03] VITALS: BP 170/94; PULSE 89
== END 2018-03-09 15:04 | disposition home or self-care (01) ==
LOC: EC 12:25
DX: M25.562 Pain in left knee (principal); M79.652 Pain in left thigh; E78.5 Hyperlipidemia, unspecified; I10 Essential (primary) hypertension; M19.90 Unspecified osteoarthritis, unspecified site; Z86.718 Personal history of other venous thrombosis and embolism; Z88.0 Allergy status to penicillin; Z88.2 Allergy status to sulfonamides; Z79.82 Long term (current) use of aspirin; Z79.899 Other long term (current) drug therapy; Z87.891 Personal history of nicotine dependence
CPT/HCPCS: 99283

== ENCOUNTER 2018-03-31 20:58 | Emergency (ER) | payer OTHER ==
--- NOTE | 2018-03-31 22:08 | ED ---
General Adult HPI - General Chief complaint: Psychiatric Symptoms Stated complaint: mental health Time Seen by Provider: 03/31/18 21:48 Source: patient, RN notes reviewed, old records reviewed Mode of arrival: ambulatory Limitations: no limitations - History of Present Illness Initial comments: 57-year-old female history of depression presenting with worsening depression and suicidal ideation. Patient is currently homeless, looking for work. She has had increasing thoughts of suicide. She does have a long history of mental health issues. She has been evaluated and admitted with psychiatric issues in the past. She states she has been trying to get her life on track but has been running into roadblock after roadblock. She feels she is being discriminated against. She has no physical complaints. Past medical history of hypertension and depression. Denies a suicide attempt. No substance ingestion or physical harm. - Related Data Home Medications Medication Instructions Recorded Confirmed Atorvastatin Calcium [Lipitor] 40 mg PO HS 10/23/17 03/09/18 Metoprolol Succinate (ER) [Toprol 50 mg PO DAILY 10/23/17 03/09/18 Xl] diphenhydrAMINE HCL [Benadryl] 50 mg PO Q4-6H PRN 10/23/17 03/09/18 Albuterol Inhaler [Ventolin Hfa 1 - 2 puff INHALATION RT-Q6H PRN 01/17/18 Inhaler] Aspirin 81 mg PO DAILY 01/17/18 03/09/18 Cholecalciferol [Vitamin D3] 1,000 unit PO DAILY 01/17/18 03/09/18 Ascorbic Acid [Vitamin C] 1,000 mg PO DAILY 03/09/18 03/09/18 Ibuprofen 600 mg PO Q6HR PRN 03/09/18 03/09/18 Ranitidine HCl [Zantac] 150 mg PO BID 03/09/18 03/09/18 Previous Rx's Medication Instructions Recorded Clindamycin [Cleocin] 450 mg PO TID #90 cap 02/26/18 Acetaminophen [Tylenol] 500 mg PO Q4-6H PRN #20 tab 03/09/18 Ibuprofen [Motrin] 600 mg PO Q8HR PRN #20 tab 03/09/18 Allergies Allergy/AdvReac Type Severity Reaction Status Date / Time Penicillins Allergy Rash/Hives Verified 03/31/18 21:40 Sulfa (Sulfonamide Allergy Rash/Hives Verified 03/31/18 21:40 Antibiotics) Review of Systems ROS Statement: Those systems with pertinent positive or pertinent negative responses have been documented in the HPI. ROS Other: All systems not noted in ROS Statement are negative. Past Medical History Past Medical History: COPD, Deep Vein Thrombosis (DVT), Hyperlipidemia, Hypertension Additional Past Medical History / Comment(s): back pain due to injury History of Any Multi-Drug Resistant Organisms: None Reported Past Surgical History: Hysterectomy Additional Past Surgical History / Comment(s): splenectomy Past Anesthesia/Blood Transfusion Reactions: No Reported Reaction Past Psychological History: Anxiety, Bipolar Smoking Status: Former smoker Past Alcohol Use History: None Reported Past Drug Use History: None Reported - Past Family History Father Family Medical History: Congestive Heart Failure (CHF) General Exam Limitations: no limitations General appearance: alert, in no apparent distress Head exam: Present: atraumatic, normocephalic Eye exam: Present: normal appearance, PERRL ENT exam: Present: normal exam Neck exam: Present: normal inspection. Absent: tenderness Respiratory exam: Present: normal lung sounds bilaterally. Absent: respiratory distress, wheezes Cardiovascular Exam: Present: regular rate, normal rhythm GI/Abdominal exam: Present: soft. Absent: distended, tenderness Extremities exam: Present: normal inspection Back exam: Present: normal inspection Neurological exam: Present: alert, oriented X3, CN II-XII intact. Absent: motor sensory deficit Psychiatric exam: Present: depressed, anxious, suicidal ideation Skin exam: Present: warm, dry, intact. Absent: cyanosis, diaphoretic Course Vital Signs 03/31/18 03/31/18 21:40 23:18 Temperature 98.3 F Pulse Rate 83 Respiratory 18 17 Rate Blood Pressure 157/74 O2 Sat by Pulse 97 Oximetry Medical Decision Making - Medical Decision Making Patient evaluated by EPS. She is given multiple resources, she is currently denying suicidal ideation. Patient has follow-up with [facility] certified social workers in health care. She is given referral to local care home. I did reevaluate the patient , she is significantly improved. Denying suicidal ideation. She will be discharged with close outpatient follow-up. - Lab Data Lab Results 03/31/18 03/31/18 Range/Units 22:35 22:35 Urine Color Yellow Urine Appearance Cloudy H (Clear) Urine pH 5.5 (5.0-8.0) Ur Specific [place] 1.012 (1.001-1.035) Urine Protein Negative (Negative) Urine Glucose (UA) Negative (Negative) Urine Ketones Negative (Negative) Urine Blood Negative (Negative) Urine Nitrite Negative (Negative) Urine Bilirubin Negative (Negative) Urine Urobilinogen <2.0 (<2.0) mg/dL Ur Leukocyte Esterase Negative (Negative) Urine RBC 3 (0-5) /hpf Urine WBC 2 (0-5) /hpf Ur Squamous Epith Cells 4 (0-4) /hpf Urine Bacteria Rare H (None) /hpf Hyaline Casts 4 H (0-2) /lpf Urine Mucus Occasional H (None) /hpf Urine Opiates Screen Not Detected (NotDetected) Ur Oxycodone Screen Not Detected (NotDetected) Urine Methadone Screen Not Detected (NotDetected) Ur Propoxyphene Screen Not Detected (NotDetected) Ur Barbiturates Screen Not Detected (NotDetected) U Tricyclic Antidepress Not Detected (NotDetected) Ur Phencyclidine Scrn Not Detected (NotDetected) Ur Amphetamines Screen Not Detected (NotDetected) U Methamphetamines Scrn Not Detected (NotDetected) U Benzodiazepines Scrn Not Detected (NotDetected) Urine Cocaine Screen Not Detected (NotDetected) U Marijuana (THC) Screen Not Detected (NotDetected) Disposition Clinical Impression: Depression Disposition: HOME SELF-CARE Condition: Fair Instructions: Depression (ED) Is patient prescribed a controlled substance at d/c from ED?: No Referrals: Radha Camarena MD [Primary Care Provider] - 1-2 days Time of Disposition: 02:33
[2018-03-31 22:53] LABS: Appearance,Urine Cloudy (Clear); Bacteria,Urine Rare /hpf; Bilirubin,Urine Negative (Negative); Blood,Urine Negative (Negative); Color,Urine Yellow; Glucose,Urine (UA) Negative (Negative); Hyaline Casts,Urine 4 /lpf (0-2); Ketones,Urine Negative (Negative); Leukocyte Esterase,Urine Negative (Negative); Mucus,Urine Occasional /hpf; Nitrite,Urine Negative (Negative); PH, Urine 5.5 (5.0-8.0); Protein,Urine Negative (Negative); RBC,Urine 3 /hpf (0-5); Specific Gravity,Urine 1.012 (1.001-1.035); Squamous Epithelial Cell,Urine 4 /hpf (0-4); Urobilinogen,Urine <2.0 mg/dL (<2.0); WBC,Urine 2 /hpf (0-5)
[2018-03-31 23:01] LABS: Amphetamine Screen,Urine Not Detected (NotDetected); Barbiturate Screen,Urine Not Detected (NotDetected); Benzodiazepines Screen,Urine Not Detected (NotDetected); Cocaine Screen,Urine Not Detected (NotDetected); Methadone Screen, Urine Not Detected (NotDetected); Opiate Screen,Urine Not Detected (NotDetected); Oxycodone Screen, Urine Not Detected (NotDetected); Phencyclidine Screen,Urine Not Detected (NotDetected); Tricyclic Antidepressant,Urine Not Detected (NotDetected); Urn Cannabinoid Scrn Not Detected (NotDetected)
[2018-04-01] MEDS ORDERED: ACETAMINOPHEN TAB 500 MG TAB PO STA (01:29)
[2018-04-01 02:56] VITALS: BP 127/63; PULSE 68; RESP 18; TEMP 97.9
== END 2018-04-01 02:56 | disposition home or self-care (01) ==
LOC: SUPCPDRO 20:58 → EC 20:58
DX: F32.9 Major depressive disorder, single episode, unspecified (principal); E78.5 Hyperlipidemia, unspecified; I10 Essential (primary) hypertension; F41.9 Anxiety disorder, unspecified; Z59.0 Homelessness; Z86.718 Personal history of other venous thrombosis and embolism; Z88.0 Allergy status to penicillin; Z79.82 Long term (current) use of aspirin; Z79.899 Other long term (current) drug therapy; Z87.891 Personal history of nicotine dependence
CPT/HCPCS: 80306; 81001; 82075; 99285